=== PATIENT | female | born 1960 | race Caucasian/White ===

== ENCOUNTER → 2020-02-09 09:57 | Outpatient (BNVA) | payer OTHER, SELFPAY | PROVIDERS: PCP Internal Medicine; Referring Provider Internal Medicine; Visit Provider Nurse Practitioner | DX: Z76.89 Persons encountering health services in other specified circumstances (principal) ==

== ENCOUNTER 2020-05-01 07:47 | Outpatient (REF) | payer OTHER, SELFPAY ==
[2020-05-01 08:27] LABS: MANUAL DIFF FLAG NO
[2020-05-01 08:31] LABS: Basophils Percent Auto 0.5 % (0-2); Eosinophils Absolute Auto 0.4 X10*3/uL (0.0-0.4); Eosinophils Percent Auto 4.8 % (0-4); Hematocrit 43.9 % (37-47); Hemoglobin 13.7 g/dl (12.0-16.0); Imm Gran Abs Auto 0.02 X10*3/uL (0.00-0.03); Imm Gran Pct Auto 0.2 % (0.0-0.4); Lymphocytes Absolute Auto 2.1 X10*3/uL (1.2-4.9); Lymphocytes Percent Auto 23.2 % (20-40); Mean Corpuscular HGB Conc 31.2 g/dl (31.0-35.0); Mean Corpuscular Hemoglobin 30.8 pg (27.0-33.0); Mean Corpuscular Volume 98.7 fL (80-98); Mean Platelet Volume 10.5 fL (9.4-12.3); Monocytes Absolute Auto 0.8 X10*3/uL (0.1-1.2); Monocytes Percent Auto 9.2 % (2-11); Neutrophils Absolute Auto 5.5 X10*3/uL (2.0-8.3); Neutrophils Percent Auto 62.1 % (45-73); Platelet Count 346 X10*3/uL (160-400); Red Blood Count 4.45 X10*6/uL (4.20-5.50); White Blood Count 8.8 X10*3/uL (4.8-10.8)
[2020-05-01 08:57] LABS: Alanine Aminotransferase 13 U/L (0-31); Albumin Level 4.2 g/dL (3.5-5.0); Alkaline Phosphatase 92 U/L (39-117); Anion Gap 13 (12-20); Aspartate Amino Transferase 18 U/L (5-31); Bilirubin Total 0.6 mg/dL (0.0-1.0); Blood Urea Nitrogen 11 mg/dL (9-16); Calcium 9.2 mg/dL (8.4-10.2); Carbon Dioxide 30 mmol/L (22-29); Chloride 104 mmol/L (96-108); Cholesterol 255 mg/dL; Estimated Glomerular Filt Rate > 60; Glucose Random 86 mg/dL (60-115); HDL Cholesterol 71 mg/dL; LDL Cholesterol Calculated 165 mg/dl; Potassium 4.8 mmol/l (3.3-5.1); Sodium 142 mmol/L (135-145); Total Protein 6.8 g/dL (6.5-8.0); Triglycerides 97 mg/dL
[2020-05-01 09:20] LABS: Free T4 (Free Thyroxine) 1.07 ng/dL (0.71-1.85); Thyroid Stimulating Hormone 0.95 uIU/mL (0.32-4.0); Vitamin D 25-OH Total 17.9 ng/mL (>30)
[2020-05-03 05:50] LABS: Folate 9.5 ng/mL (> or = 4.0); Vitamin B12 291 pg/mL (200-900)
== END 2020-05-01 07:48 | disposition home or self-care (01) ==
LOC: HO.LAB 07:47
PROVIDERS: PCP Internal Medicine; Visit Provider Internal Medicine
DX: E78.00 Pure hypercholesterolemia, unspecified (principal)
CPT/HCPCS: 36415; 80053; 80061; 82306; 82607; 82746; 84439; 84443; 85025

== ENCOUNTER 2020-09-29 12:36 | Outpatient (REF) | payer OTHER, SELFPAY ==
--- NOTE | ~2020-09-29 | MM_ITS ---
EXAMINATION: MM SCREENING DIGITAL BREAST TOMOSYNTHESIS, BILATERAL CLINICAL INFORMATION: Screening. Asymptomatic. The lifetime risk of breast cancer based on the Tyrer-Cuzick Model is 9%. COMPARISON: Mammography: 11/06/2018, 09/22/2017, 03/20/2016, 03/04/2016 TECHNIQUE: Digital breast tomosynthesis is performed in both the craniocaudal and mediolateral oblique views along with computer-aided detection (CAD). Synthesized 2D images are generated from the tomosynthesis. FINDINGS: There are scattered areas of fibroglandular density (ACR BI-RADS breast composition Category b). There are no significant masses, abnormal calcifications, or other abnormalities. Parenchymal pattern is similar to prior studies. No developing density. No significant changes. MM/MM tomosynthesis screening BI IMPRESSION: No mammographic evidence of malignancy. ASSESSMENT: BI-RADS 1: Negative RECOMMENDATION: Routine annual mammography screening. This patient's information was entered into a reminder system with a target due date for their next mammogram.
== END 2020-09-29 12:37 | disposition home or self-care (01) ==
LOC: HO.MAMMO 12:36
PROVIDERS: Visit Provider Internal Medicine
DX: Z12.31 Encounter for screening mammogram for malignant neoplasm of breast (principal)
CPT/HCPCS: 77063; 77067

== ENCOUNTER → 2020-09-30 13:49 | Outpatient (BNVA) | payer OTHER, SELFPAY | PROVIDERS: PCP Internal Medicine; Visit Provider Nurse Practitioner ==

== ENCOUNTER 2020-10-16 08:31 | Outpatient (REF) | payer OTHER, SELFPAY ==
[2020-10-16 09:29] LABS: Alanine Aminotransferase 15 U/L (0-31); Albumin Level 4.2 g/dL (3.5-5.0); Alkaline Phosphatase 87 U/L (39-117); Anion Gap 13 (12-20); Aspartate Amino Transferase 17 U/L (5-31); Bilirubin Total 0.8 mg/dL (0.0-1.0); Blood Urea Nitrogen 9 mg/dL (9-16); Calcium 9.4 mg/dL (8.4-10.2); Carbon Dioxide 26 mmol/L (22-29); Chloride 106 mmol/L (96-108); Cholesterol 222 mg/dL; Estimated Glomerular Filt Rate > 60; Glucose Random 87 mg/dL (60-115); HDL Cholesterol 77 mg/dL; LDL Cholesterol Calculated 129 mg/dl; Potassium 4.1 mmol/L (3.3-5.1); Sodium 141 mmol/L (135-145); Triglycerides 82 mg/dL
[2020-10-16 09:34] LABS: Vitamin D 25-OH Total 25.7 ng/mL (>30)
[2020-10-18 04:51] LABS: Folate 18.7 ng/mL (> or = 4.0); Vitamin B12 405 pg/mL (200-900)
== END 2020-10-16 08:32 | disposition home or self-care (01) ==
LOC: HO.LAB 08:31
PROVIDERS: PCP Internal Medicine; Visit Provider Internal Medicine
DX: E78.00 Pure hypercholesterolemia, unspecified (principal)
CPT/HCPCS: 36415; 80053; 80061; 82306; 82607; 82746

== ENCOUNTER 2021-04-06 13:01 | Outpatient (REF) | payer OTHER, SELFPAY ==
--- NOTE | ~2021-04-06 | MM_ITS ---
EXAMINATION: BONE DENSITOMETRY CLINICAL INDICATION: Age-related osteoporosis without current pathological fracture. COMPARISON: Previous BD dated 11/14/2018 and baseline BD dated 05/22/2006, spine; 11/14/2018, forearm radius 33%. TECHNIQUE: Using a [employer] DXA System (software version: 13.1) manufactured by [employer], dual-energy x-ray absorptiometry was performed of the lumbar spine and left forearm radius 33%. Patient had bilateral hip replacements, precluding bone density measurement. The images are of good technical quality. Summary results are attached. FINDINGS: AP SPINE L1-L4: Current: BMD 0.901 g/cm2, Z-score -1.3, T-score -2.3, osteopenia, 2.9% increase from previous, 18.3% decrease from baseline (<5% change is not significant). Prior: BMD 0.876 g/cm2. Baseline: BMD 1.103 g/cm2. LEFT FOREARM RADIUS 33%: BMD 0.600 g/cm2, Z-score -2.0, T-score -3.2, osteoporosis, 8.3% decrease from baseline (<5% change is not significant). Baseline: BMD 0.654 g/cm2. IDENTIFIED RISK FACTORS: Osteoporosis, height loss, menopause. HISTORY OF FRACTURE: None listed. MEDICATIONS: Multivitamins. MM/XR DEXA axial skeleton IMPRESSION: 1. DIAGNOSIS: Osteoporosis based on the lowest T-score value of -3.2 in the forearm radius 33% applying World Health Organization criteria. 2. 10-YEAR FRACTURE RISK PREDICTION, FRAX: Not performed in this patient without a femoral neck BMD measurement. 3. Treatment Recommendations: NOF guidelines recommend consideration for treatment in postmenopausal women and men age 50 and older presenting with the following: -A hip or vertebral (clinical or morphometric) fracture. -T-score less than or equal to -2.5 at the femoral neck or spine after appropriate evaluation to exclude secondary causes. -Low bone mass at the hip or spine and a 10-year fracture probability by FRAX of greater than or equal to 3% for hip fracture or greater than or equal to 20% for major osteoporotic fracture based on the [place] adapted WHO algorithm. 4. Other Recommendations: All treatment decisions require clinical judgment and consideration of individual patient factors, including patient preferences, comorbidities, previous drug use, risk factors not captured in the FRAX model (e.g. frailty, falls, vitamin D deficiency, increased bone turnover, interval significant decline in bone density) and possible under or overestimation of fracture risk by FRAX. Additional medical evaluation for secondary cause of low bone mineral density may be appropriate. FUTURE SCAN RECOMMENDATION: People with diagnosed cases of osteoporosis or at high risk for fracture should have regular bone mineral density tests. For patients eligible for Medicare, routine testing is allowed once every 2 years. The testing frequency can be increased to one year for patients who have rapidly progressing disease, those who are receiving or discontinuing medical therapy to restore bone mass, or have additional risk factors.
== END 2021-04-06 13:02 | disposition home or self-care (01) ==
LOC: HO.MAMMO 13:01
PROVIDERS: PCP Internal Medicine; Visit Provider Internal Medicine
DX: Z13.820 Encounter for screening for osteoporosis (principal); M81.0 Age-related osteoporosis without current pathological fracture; Z78.0 Asymptomatic menopausal state; Z79.899 Other long term (current) drug therapy
CPT/HCPCS: 77080

== ENCOUNTER → 2021-05-31 13:18 | Outpatient (BNVA) | payer OTHER, SELFPAY | PROVIDERS: PCP Internal Medicine | DX: N39.41 Urge incontinence (principal) | CPT/HCPCS: 51798 ==

== ENCOUNTER → 2021-07-01 15:45 | Outpatient (BNVA) | payer OTHER, SELFPAY | PROVIDERS: PCP Internal Medicine | DX: Z13.89 Encounter for screening for other disorder (principal) ==

== ENCOUNTER 2021-09-30 13:31 | Outpatient (REF) | payer OTHER, SELFPAY ==
--- NOTE | ~2021-09-30 | MM_ITS ---
EXAMINATION: MM SCREENING DIGITAL BREAST TOMOSYNTHESIS, BILATERAL CLINICAL INFORMATION: Screening. Asymptomatic. The lifetime risk of breast cancer based on the Tyrer-Cuzick Model is 10%. COMPARISON: Mammography: 09/29/2020, 11/06/2018, 09/22/2017 TECHNIQUE: Digital breast tomosynthesis is performed in both the craniocaudal and mediolateral oblique views along with computer-aided detection (CAD). Synthesized 2D images are generated from the tomosynthesis. FINDINGS: There are scattered areas of fibroglandular density (ACR BI-RADS breast composition Category b). There are no significant masses, abnormal calcifications, or other abnormalities. Parenchymal pattern is similar to prior studies. No developing density. No architectural abnormality. No significant changes. MM/MM tomosynthesis screening BI IMPRESSION: No mammographic evidence of malignancy. ASSESSMENT: BI-RADS 1: Negative RECOMMENDATION: Routine annual mammography screening. This patient's information was entered into a reminder system with a target due date for their next mammogram.
== END 2021-09-30 13:32 | disposition home or self-care (01) ==
LOC: HO.MAMMO 13:31
PROVIDERS: Visit Provider Internal Medicine
DX: Z12.31 Encounter for screening mammogram for malignant neoplasm of breast (principal)
CPT/HCPCS: 77063; 77067

== ENCOUNTER 2021-11-09 15:30 | Outpatient (REF) | payer OTHER, SELFPAY ==
[2021-11-09 17:20] LABS: Appearance Urine HAZY; Color Urine ORANGE; Glucose Urine UA 100 MG/DL (NEG); Leukocyte Esterase Urine 3+ (NEG); Nitrite Urine POS (NEG); Specific Gravity - Urine 1.015 (1.005-1.025); UACC Culture Trigger YES; Urine Blood 3+ (NEG); Urine Ketones NEG (NEG); Urine Protein 3+ MG/DL (NEG-TRACE)
[2021-11-09 17:31] LABS: Bacteria Urine 2+ /LPF; Squamous Epithelial Cell Urine 1+ /LPF; WBC Urine TNTC /HPF (0-4)
== END 2021-11-09 15:31 | disposition home or self-care (01) ==
LOC: HO.LAB 15:30
PROVIDERS: PCP Internal Medicine; Visit Provider Internal Medicine
DX: N39.41 Urge incontinence (principal)
CPT/HCPCS: 81001; 87086

== ENCOUNTER 2022-01-19 08:52 | Outpatient (REF) | payer OTHER, SELFPAY ==
--- NOTE | ~2022-01-19 | XR_ITS ---
EXAMINATION: XR FOOT, LEFT CLINICAL INFORMATION: Left foot pain. COMPARISON: 09/11/2017. TECHNIQUE: AP, lateral, and oblique views of the left foot. FINDINGS: There is no evidence of acute fracture or dislocation of the left foot. No destructive bony lesions identified. Degenerative spurring is seen about the naviculocuneiform joint. Plantar and Achilles calcaneal spurs present. XR/XR foot LT 2V IMPRESSION: No evidence of acute fracture or dislocation of the left foot. Calcaneal spurs. Stable appearance compared to 09/11/2017.
== END 2022-01-19 08:53 | disposition home or self-care (01) ==
LOC: HO.XRAY 08:52
PROVIDERS: PCP Internal Medicine; Visit Provider Internal Medicine
DX: M79.672 Pain in left foot (principal)
CPT/HCPCS: 73620

== ENCOUNTER → 2022-07-28 15:36 | Outpatient (BNVA) | payer OTHER, SELFPAY | PROVIDERS: PCP Internal Medicine; Visit Provider Nurse Practitioner | DX: Z13.89 Encounter for screening for other disorder (principal) ==

== ENCOUNTER 2022-10-26 12:41 | Outpatient (REF) | payer OTHER, SELFPAY ==
--- NOTE | ~2022-10-26 | MM_ITS ---
EXAMINATION: MM SCREENING DIGITAL BREAST TOMOSYNTHESIS, BILATERAL CLINICAL INFORMATION: Screening. Asymptomatic. The lifetime risk of breast cancer based on the Tyrer-Cuzick Model is 8%. COMPARISON: Mammography: This study is compared with prior exams dating back to 2019. TECHNIQUE: Digital breast tomosynthesis is performed in both the craniocaudal and mediolateral oblique views along with computer-aided detection (CAD). Synthesized 2D images are generated from the tomosynthesis. FINDINGS: There are scattered areas of fibroglandular density (ACR BI-RADS breast composition Category b). There are no significant masses, abnormal calcifications, or other abnormalities. MM/MM tomosynthesis screening BI IMPRESSION: No mammographic evidence of malignancy. ASSESSMENT: BI-RADS BI-RADS 1 - Negative RECOMMENDATION: Routine annual mammography screening. 1 year F/U This examination should not preclude the clinical evaluation of a suspicious palpable abnormality. This patient's information was entered into a reminder system with a target due date for their next mammogram.
== END 2022-10-26 12:42 | disposition home or self-care (01) ==
LOC: HO.MAMMO 12:41
PROVIDERS: PCP Internal Medicine; Visit Provider Internal Medicine
DX: Z12.31 Encounter for screening mammogram for malignant neoplasm of breast (principal)
CPT/HCPCS: 77063; 77067

== ENCOUNTER → 2022-10-26 13:15 | Outpatient (BNV) | payer OTHER, SELFPAY | PROVIDERS: PCP Internal Medicine; Visit Provider Radiology Diagnostic Radiology | DX: Z12.31 Encounter for screening mammogram for malignant neoplasm of breast (principal) | CPT/HCPCS: 77063; 77067 ==

== ENCOUNTER 2023-01-19 09:09 | Outpatient (REF) | payer OTHER, SELFPAY ==
[2023-01-23 21:18] LABS: HPV mRNA E6/E7 rflx Not Detected (Not Detected)
== END 2023-01-19 09:10 | disposition home or self-care (01) ==
LOC: HO.LNP 09:09
PROVIDERS: PCP Internal Medicine; Visit Provider Advanced Practice Midwife
DX: Z01.419 Encounter for gynecological examination (general) (routine) without abnormal findings (principal)
CPT/HCPCS: 87624; 88142

== ENCOUNTER 2023-01-19 09:09 | Outpatient (AMB) | payer OTHER, SELFPAY ==
--- NOTE | 2023-01-19 09:20 | A.OFFVIS_ITS ---
Intake Vital Signs 01/19/23 09:33 Height 5 ft 3 in Weight 155 lb BMI 27.5 BP 126/74 Intake Visit Reasons: New patient Annual Intake Note: The patient agreed to use of a medical services assistant during this encounter. Scribed for MANNY Miller by Ginette Saravia medical services assistant, on 01/19/2023 at 10:04 am EST. Merchandise Distributor Required: No Information Interpreted: non-clinical & clinical Workday Consultant: Workday Consultant Present ([employer] ANGULO) Accompanied by: Self / Same As Patient Allergies Penicillins [PENICILLINS] Allergy (Severe, Verified 01/19/23 09:40) SWELLING amoxicillin Allergy (Unknown, Verified 01/19/23 09:40) swelling penicillin V Allergy (Unknown, Verified 01/19/23 09:40) swelling Post menopausal: Yes HPI HPI Comments History of Present Illness Details She is a new patient postmenopausal woman presenting for annual exam. 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 Patient admits she tries to eat a healthy diet including Calcium and Vitamin D. She stays active with exercise. Currently not sexually active. Denies vaginal itching and irritation. Denies family hx of colon and ovarian cancer. Last pap smear 01/22/15. Last mammogram 10/26/22. UTD on colonoscopy. [facility] Medical History Obesity (BMI 30-39.9) Lumbar disc herniation Congenital pyloric stenosis Stress incontinence Osteoporosis Vitamin D deficiency Sciatica Anxiety and depression Peripheral vascular disease Alcohol abuse Allergic rhinitis GERD (gastroesophageal reflux disease) Hypercholesterolemia Surgical History History of total right hip arthroplasty History of left hip replacement History of bladder surgery History of tonsillectomy Hx of colonoscopy History of esophagogastroduodenoscopy (EGD) Family History Father HTN (hypertension) Diabetes Mother HTN (hypertension) CVD (cardiovascular disease) Paternal Grandfather Myocardial infarction Paternal Grandmother Myocardial infarction Breast cancer Maternal Grandfather Myocardial infarction Maternal Grandmother Myocardial infarction Social History Household Members: Family Housing: Condominium Alcohol intake: current Alcohol intake frequency: holidays/special occasions only Alcohol type: wine Patient Tobacco Use Status: Former Tobacco user Tobacco use type: Cigarette Years Smoked: 18 years old quit e-Cigarette/Vaping Use: Never Used Second Hand Smoke Exposure: No service: No Current occupational status: employed Cognitive needs: No Hearing needs: No Vision needs: No Female Reproductive History Menstrual Menopause type: natural Total pregnancies: 2 Full term: 2 Number of Living Children: 2 Date of last pap smear: 01/22/15 Date of Mammogram: 10/26/22 Date of last Bone Density Screenin04/06/21 Physical Exam Vital Signs: Last Vital Signs BP 126/74 01/19/23 09:33 BMI result Body Mass Index 27.5 Const General: cooperative, healthy appearing, no acute distress, well developed and alert Orientation/consciousness: patient oriented x3 HEENT Head: Yes normal to inspection Eyes General: appearance normal, both eyes and all related structures Neck Neck: Yes normal visual inspection Thyroid: Thyroid normal Chest Chest palpation & inspection: normal inspection of the chest Breast/axilla inspection: normal inspection of the breasts (no puckering, dimpling, peau de orange, retraction, discharge, masses) Breast/axilla palpation: normal palpation of the breasts Resp Effort & Inspection: normal respiratory effort GI Inspection: Yes normal to inspection Palpation (GI): Soft to palpation (to palpation) Rectal Exam - Female: deferred General: Yes bladder normal to inspection External Female Exam: normal external appearance and normal appearance of the urethra Speculum Exam - Vagina: normal appearance of the vagina, normal palpation and vagina atrophic Speculum Exam - Cervix: normal appearance of the cervix and normal palpation Bimanual exam- vagina & uterus: normal palpation and normal palpation Bimanual Exam- Adnexa, other: normal adnexae and no masses Skin General skin exam: no rashes or lesions noted Neuro General: patient oriented x3 Cognition (Neuro): normal cognition Extrem General: Yes normal to inspection Psych Attitude: cooperative Thought process: Normal thought process present Assessment & Plan Assessment & Plan (1) Encounter for well woman exam with routine gynecological exam: Code(s): Z01.419 - Encounter for gynecological examination (general) (routine) without abnormal findings Plan: Discussed: Current recommendations for pap smears per ASCCP guidelines. Breast awareness and periodic self breast exams. Encouraged yearly mammograms. Maintaining a healthy lifestyle including a well balanced diet including Calcium and Vitamin D and routine exercise including yoga. Encouraged to use condoms for STD prevention if become sexually active. Contact office with any PMB. All of her questions and concerns were addressed to the best of my ability. RTO in 1 year for AG. Orders: Orders Pap Smear Today Z01.419 - Encounter for gynecological examination (general) (routine) without abnormal findings Coding Level of Care Code New Pt Prev Care 40-64y(56640) Diagnoses Encounter for well woman exam with routine gynecological exam Z01.419
[2023-01-19 09:33] VITALS: BP 126/74; BMI 27.5
== END 2023-01-19 10:26 | disposition home or self-care (01) ==
PROVIDERS: PCP Internal Medicine; Visit Provider Advanced Practice Midwife
DX: Z01.419 Encounter for gynecological examination (general) (routine) without abnormal findings (principal)
CPT/HCPCS: 99386

== ENCOUNTER → 2023-03-20 14:33 | Outpatient (BNVA) | payer SELFPAY | PROVIDERS: PCP Internal Medicine; Visit Provider Physician Assistant Medical | DX: S82.001A Unspecified fracture of right patella, initial encounter for closed fracture (principal); S82.002A Unspecified fracture of left patella, initial encounter for closed fracture; W01.0XXA Fall on same level from slipping, tripping and stumbling without subsequent striking against object, initial encounter | CPT/HCPCS: 99203 ==

== ENCOUNTER → 2023-03-26 13:18 | Outpatient (BNVA) | payer OTHER, SELFPAY | PROVIDERS: PCP Internal Medicine; Visit Provider Physician Assistant Medical | DX: S82.002A Unspecified fracture of left patella, initial encounter for closed fracture (principal); W01.0XXA Fall on same level from slipping, tripping and stumbling without subsequent striking against object, initial encounter | CPT/HCPCS: 99214 ==

== ENCOUNTER 2023-04-20 16:19 | Outpatient (AMB) | payer OTHER, SELFPAY ==
--- NOTE | 2023-04-20 15:59 | MHC.PC.OV ---
Vital Signs 04/20/23 16:00 Height 5 ft 3 in Intake Visit Reasons: COVID Positive Allergies Penicillins [PENICILLINS] Allergy (Severe, Verified 04/20/23 16:00) SWELLING amoxicillin Allergy (Unknown, Verified 04/20/23 16:00) swelling penicillin V Allergy (Unknown, Verified 04/20/23 16:00) swelling Medication List - Last Reconciled 04/20/23 by Karley Yates MD albuterol sulfate 90 mcg/actuation 2 puffs inhalation Q4-6H PRN 30 days budesonide ER 3 mg PO DAILY 30 days famotidine 40 mg PO BID ipratropium bromide 1 intranasal BEDTIME loratadine (Claritin) 10 mg PO DAILY nirmatrelvir-ritonavir 300 mg (150 mg x 2)-100 mg (Paxlovid) take TWO 150 mg tablets of nirmatrelvir with ONE 100 mg tablet of ritonavir twice daily for 5 days PO simvastatin 20 mg PO BEDTIME Tobacco use date assessed: 04/20/23 Fall risk assessment: 1 Fall in past year Last assessed Fall Risk: 04/20/23 Dental Screening Dental Screen Date: 04/20/23 Did you have a dental visit in the last 12 months?: Yes Did you have a dental problem in the last 6 months where you did not have access to dental care?: No Was dental information given to patient?: Patient has dentist HPI COVID Positive HPI Details 44-year-old female with a history of GERD hypercholesterolemia osteoporosis coming in for an acute problem through Telehealth. Last seen in January 2022 Patient just got diagnosed with COVID-19 1 day congestion sinus pressure- sneezing no sore throat. Discussed about the antiviral that it is a prescription sent in and that if she decides to take it to stop simvastatin. [facility] Medical History Obesity (BMI 30-39.9) Lumbar disc herniation Congenital pyloric stenosis Stress incontinence Osteoporosis Vitamin D deficiency Sciatica Anxiety and depression Peripheral vascular disease Alcohol abuse Allergic rhinitis GERD (gastroesophageal reflux disease) Hypercholesterolemia Surgical History History of total right hip arthroplasty History of left hip replacement History of bladder surgery History of tonsillectomy Hx of colonoscopy History of esophagogastroduodenoscopy (EGD) Family History Father HTN (hypertension) Diabetes Mother HTN (hypertension) CVD (cardiovascular disease) Paternal Grandfather Myocardial infarction Paternal Grandmother Myocardial infarction Breast cancer Maternal Grandfather Myocardial infarction Maternal Grandmother Myocardial infarction Social History [facility]hold Members: [facility] Alcohol intake: current Alcohol intake frequency: holidays/special occasions only Alcohol type: wine Patient Tobacco Use Status: Former Tobacco user Tobacco use type: Cigarette Years Smoked: 18 years old quit e-Cigarette/Vaping Use: Never Used Second Hand Smoke Exposure: No service: No Current occupational status: employed Cognitive needs: No Hearing needs: No Vision needs: No Questionnaire PHQ-9 Over the last 2 weeks, how often have you been bothered by any of the following problems? 1. Little interest or pleasure in doing things: not at all 2. Feeling down, depressed, or hopeless: not at all 3. Trouble falling or staying asleep, or sleeping too much: not at all 4. Feeling tired or having little energy: not at all 5. Poor appetite or overeating: not at all 6. Feeling bad about yourself - or that you are a failure or have let yourself or your family down: not at all 7. Trouble concentrating on things, such as reading the newspaper or watching television: not at all 8. Moving or speaking so slowly that other people could have noticed. Or the opposite - being so fidgety or restless that you have been moving around a lot more than usual: not at all 9. Thoughts that you would be better off or of hurting yourself in some way: not at all Total score: 0 Depression Screening Interpretation: Negative Depression Screening Done: Yes Source: Developed by Drs. Rao Rizo, Lashawn Peerz, Quinn Aquino and colleagues, with an educational bernarda from [employer]. Thrive Questionnaire Date Thrive assessed: 04/20/23 I am a: Patient What is your living situation today?: I have a steady place to live Within the past 12 months, did the food you bought not last and you didn't have the money to get more?: Never true Within the past 12 months, did you worry whether your food would run out before you got money to buy more?: Never true Do you have trouble paying for medicines?: No Do you have trouble getting transportation to medical appointments?: No Do you have trouble paying your heating and electricity bill?: No Do you have trouble taking care of your child, family member or friend?: No Do you have trouble with day-to-day activities such as bathing, preparing meals, shopping, managing finances, etc.?: No Are you currently unemployed and looking for a job?: No Are you interested in more education?: No Please select the resources that you would like help with: None AUDIT C Alcohol Use Questionnaire (AUDIT-C) 1. How often do you have a drink containing alcohol?: 2-4 times a month 2. How many drinks containing alcohol do you have on a typical day when you are drinking?: 1 or 2 3. How often do you have six or more drinks on one occasion?: Never Total Score: 2 AUGIE-7 AMB Questionnaire AUGIE-7 Date AUGIE - 7 assessed: 04/20/23 Feeling nervous, anxious, or on edge: 0 = Not at all Not being able to stop or control worryin = Not at all Worrying too much about different things: 0 = Not at all Trouble relaxin = Not at all Being so restless that it is hard to sit still: 0 = Not at all Becoming easily annoyed or irritable: 0 = Not at all Feeling afraid as if something awful might happen: 0 = Not at all Total AUGIE-7 score (0-4 normal; 5-9 mild; 10-14 moderate; 15-21 severe): 0 Source: Developed by Drs. Rao Rizo, Lashawn Perez, Quinn Aquino and colleagues, with an educational bernarda from [employer]. Physical exam (Primary Care) Tobacco/Smoking Status: Tobacco use Status Tobacco use date assessed 04/20/23 04/20/23 16:02 Patient Tobacco Use Status Former Tobacco user 04/20/23 16:00 Tobacco use type Cigarette 04/20/23 16:00 e-Cigarette/Vaping Use Never Used 04/20/23 16:00 PHQ-9: PHQ-9 Score PHQ-9: Total score 0 04/20/23 16:26 Depression Screening Interpretation: Negative Thrive Assessment: Date of Thrive Assessment Date Thrive assessed 04/20/23 04/20/23 16:02 Telehealth Telehealth Location of provider rendering services: practice address Location of patient: address on file Patient Identification confirmed using: Name, : Yes Telehealth method: voice only Patient verbally consented to treatment: Yes Patient verbally consented to billing insurance company: Yes Patient informed of any privacy concerns related to visit: Yes Minutes spent on Phone/Video with Pt.: 15 Assessment and Plan Assessment & Plan (1) COVID-19 virus infection: Comment: 04/20/2023 Code(s): U07.1 - COVID-19 Plan: Discussion with the patient to increase oral fluids. For sore throat can take Cepacol lozenges and for cough can take Delsym to help stop the cough. Patient also was advised if to take antiviral to hold simvastatin. Quarantine for 5 days and after 5 days can go outside if needed but has to use the mask for another 5 days Medications: New nirmatrelvir-ritonavir 300 mg (150 mg x 2)-100 mg (Paxlovid) take TWO 150 mg tablets of nirmatrelvir with ONE 100 mg tablet of ritonavir twice daily for 5 days PO 30 ea 0RF Coding Level of Care Code Tele Est Pt Level 3 (97810) Diagnoses COVID-19 virus infection U07.1
== END 2023-04-20 17:27 | disposition home or self-care (01) ==
LOC: HO.HMGH 16:19
PROVIDERS: PCP Internal Medicine; Visit Provider Internal Medicine
DX: U07.1 COVID-19 (principal)
CPT/HCPCS: 99213

== ENCOUNTER 2023-07-27 10:00 | Outpatient (AMB) | payer OTHER, SELFPAY ==
--- NOTE | 2023-07-27 10:02 | A.OFFVIS_ITS ---
Vital Signs 07/27/23 10:13 Height 5 ft 3 in Weight 152 lb BMI 26.9 BP 126/59 L Blood Pressure Location Lt brachial Position Sitting Pulse 75 Intake Visit Reasons: 1 yr follow up lymphocytic colitis, GERD Intake Note: Patient is seen in office for one year follow up visit, following lymphocytic colitis & GERD. Pt c/o: denies any GI issues, normal stools Nib Finisher Required: No Accompanied by: Self / Same As Patient Allergies Penicillins [PENICILLINS] Allergy (Severe, Verified 07/27/23 10:11) SWELLING amoxicillin Allergy (Unknown, Verified 07/27/23 10:11) swelling penicillin V Allergy (Unknown, Verified 07/27/23 10:11) swelling HPI HPI 1 yr follow up lymphocytic colitis, GERD: Details: Assessment & Plan (1) GERD (gastroesophageal reflux disease): Code(s): K21.9 - Gastro-esophageal reflux disease without esophagitis Plan: The 61-year-old female who appears to been lost follow-up since December of 2021. She has been doing very well! She has been unusually healthy over the past year or so. She partly attributes this to moving out of her old house that had mold, and taking her claritin every day. She finds that not having any post nasal drip is helping her not to set off her GERD. She continues on her budesinide for he lymphocytic colitis with good control. She also continues on her famotidine with good control. She will be moving to [place] in a couple of years. (2) Lymphocytic colitis: Code(s): K52.832 - Lymphocytic colitis (3) Diaphragmatic hernia without obstruction: Comment: quite large with food pouching and may need [employer] Treatment Code(s): K44.9 - Diaphragmatic hernia without obstruction or gangrene (4) Erosive esophagitis: Code(s): K22.10 - Ulcer of esophagus without bleeding Medications: Refilled budesonide ER 3 mg PO DAILY 30 days 30 caps 6RF K52.832 - Lymphocytic colitis famotidine 40 mg PO BID 180 tabs 2RF J30.9 - Allergic rhinitis, unspecified, K21.9 - Gastro-esophageal reflux disease without esophagitis budesonide ER 3 mg PO DAILY 30 days 30 caps 11RF K52.832 - Lymphocytic colitis TODAY'S VISIT She is doing much better since she moved out of her old house, she may have a lot of environmental allergies that c/t her severe GERD and diarrhea. She has not needed her famotidine, but had it refilled for prn use. She continues on her budesinide and she wants to experiment weaning off of the budesinide and we discuss a weaning schedule. She is now living with her mother. She has found that red wine is a trigger for her sx so she avoids this. She is in the process of moving to [place]! She has a lot to think about. This will be happening in about a year and andrea. MARLY 1 year. [facility] Medical History Obesity (BMI 30-39.9) Lumbar disc herniation Congenital pyloric stenosis Stress incontinence Osteoporosis Vitamin D deficiency Sciatica Anxiety and depression Peripheral vascular disease Alcohol abuse Allergic rhinitis GERD (gastroesophageal reflux disease) Hypercholesterolemia Surgical History History of total right hip arthroplasty History of left hip replacement History of bladder surgery History of tonsillectomy Hx of colonoscopy History of esophagogastroduodenoscopy (EGD) Family History Father HTN (hypertension) Diabetes Mother HTN (hypertension) CVD (cardiovascular disease) Paternal Grandfather Myocardial infarction Paternal Grandmother Myocardial infarction Breast cancer Maternal Grandfather Myocardial infarction Maternal Grandmother Myocardial infarction Social History Household Members: [facility] Alcohol intake: current Alcohol intake frequency: holidays/special occasions only Alcohol type: wine Patient Tobacco Use Status: Former Tobacco user Tobacco use type: Cigarette Years Smoked: 18 years old quit e-Cigarette/Vaping Use: Never Used Second Hand Smoke Exposure: No service: No Current occupational status: employed Cognitive needs: No Hearing needs: No Vision needs: No Review of Systems Const All systems reviewed & are unremarkable except as noted in HPI and below Denies fatigue, Denies fever(s), Denies night sweats, Denies poor appetite and Reports weight loss (stopped drinking soda) Eyes Details: glasses Reports requires corrective lenses ENT Reports Normal hearing present, Denies dental pain, Denies dysphagia, Denies hearing loss, Denies mouth pain, Denies odynophagia, Denies throat swelling, Denies tongue swelling and Reports other (Dentition adequate) Card Reports no additional complaints Resp Reports no additional complaints GI Details: Denies abdominal pain, Denies melena, Denies bloating, Denies hematochezia, Denies constipation, Denies GI cramping, Denies dysphagia, Denies excessive flatus, Denies early satiety, Reports heartburn, Reports diarrhea, Denies nausea, Denies odynophagia, Denies vomiting and Denies hematemesis Musc Details: going to PT now for this also fx her knee recetnly Reports arthralgias, Reports muscle cramps and Reports muscle weakness Skin/Breast Denies pruritus, Denies lesions, Denies rash and Denies jaundice Neuro Reports Normal hearing present and Denies Abnormal speech present Endo Denies fatigue Aller/Immun Denies throat swelling and Denies tongue swelling Physical Exam Vital Signs: Last Vital Signs Pulse 75 07/27/23 10:13 BP 126/59 L 07/27/23 10:13 BMI result Body Mass Index 26.9 Const General: cooperative, no acute distress, well developed and well groomed Nutritional Appearance: average body habitus and well nourished Orientation/consciousness: oriented to person, oriented to place and oriented to time Limitations: No language barrier HEENT Head: Yes normocephalic and Yes atraumatic Eyes General: appearance normal, both eyes and all related structures Pupils: Equal, round and reactive pupils present Neck Neck: Yes normal visual inspection and Yes no lymphadenopathy Thyroid: Thyroid normal Resp Effort & Inspection: normal respiratory effort and able to speak in complete sentences Auscultation: clear to auscultation bilaterally Cardio Rate: regular rate Rhythm: regular rhythm Heart sounds: Normal, physiologic split S2 sound present Peripheral pulses: radial pulses present and posterior tibial pulses present GI Inspection: No distended and No Abdominal panniculus present Palpation (GI): Soft to palpation, nontender, no guarding, not rigid and No hepatosplenomegaly present Percussion: Yes normal to percussion Auscultation: normal bowel sounds Rectal Exam - Female: deferred Skin General skin exam: no rashes or lesions noted, turgor normal, skin not dry, no jaundice, No spider nevi and no striae Rashes: no rashes Nails: normal Neuro General: oriented to person, oriented to place and oriented to time Cranial nerves: Yes Equal, round and reactive pupils present and Yes Normal hear ing present Speech: No Abnormal speech present Extrem General: Yes normal to inspection, No clubbing, No cyanosis and No edema Psych Appearance: grossly normal and well kempt Mental Status: mental status grossly normal Speech and movement: Normal speech and movement present Affect: normal affect Attitude: cooperative Thought process: Normal thought process present and not confabulating Thought content: Normal thought content present Insight: Fair insight present (Psych) Judgement: Fair judgement present (Psych) Assessment & Plan Assessment & Plan (1) GERD (gastroesophageal reflux disease): Code(s): K21.9 - Gastro-esophageal reflux disease without esophagitis Category: Medical (2) Lymphocytic colitis: Code(s): K52.832 - Lymphocytic colitis Category: Medical Plan She is doing much better since she moved out of her old house, she may have a lot of environmental allergies that c/t her severe GERD and diarrhea. She has not needed her famotidine, but had it refilled for prn use. She continues on her budesinide and she wants to experiment weaning off of the budesinide and we discuss a weaning schedule. She is now living with her mother. She has found that red wine is a trigger for her sx so she avoids this. She is in the process of moving to [place]! She has a lot to think about. This will be happening in about a year and aLiang LUKE 1 year. Medications: Refilled budesonide DR-ER 3 mg PO DAILY 30 caps 11RF 30 days K52.832 - Lymphocytic colitis
[2023-07-27 10:13] VITALS: BP 126/59; PULSE 75; BMI 26.9
== END 2023-07-27 10:32 | disposition home or self-care (01) ==
PROVIDERS: Visit Provider Nurse Practitioner
DX: K21.9 Gastro-esophageal reflux disease without esophagitis (principal); K52.832 Lymphocytic colitis
CPT/HCPCS: 99213

== ENCOUNTER → 2023-07-27 10:00 | Outpatient (BNVA) | payer OTHER, SELFPAY | PROVIDERS: Visit Provider Nurse Practitioner ==

== ENCOUNTER 2023-08-21 08:33 | Outpatient (AMB) | payer OTHER, SELFPAY ==
--- NOTE | 2023-08-21 08:50 | MHC.PC.OV ---
Vital Signs 08/21/23 08:51 Height 5 ft 3 in Weight 153 lb 0.4 oz BMI 27.1 BP 110/72 Blood Pressure Location Lt brachial Position Sitting Pulse 70 Pulse Source Pulse Oximeter Pulse Oximetry (%) 99 Oxygen Delivery Method Room Air Intake Visit Reasons: Yearly physical Intake Note: Patient is here today for a physical. Allergies Penicillins [PENICILLINS] Allergy (Severe, Verified 07/27/23 10:11) SWELLING amoxicillin Allergy (Unknown, Verified 07/27/23 10:11) swelling penicillin V Allergy (Unknown, Verified 07/27/23 10:11) swelling Medication List - Last Reconciled 08/21/23 by Karley Yates MD albuterol sulfate 90 mcg/actuation 2 puffs inhalation Q4-6H PRN 30 days ipratropium bromide 1 intranasal BEDTIME loratadine (Claritin) 10 mg PO DAILY simvastatin 20 mg PO BEDTIME Tobacco use date assessed: 08/21/23 Fall risk assessment: No Falls in past year Last assessed Fall Risk: 08/21/23 Dental Screening Dental Screen Date: 08/21/23 Did you have a dental visit in the last 12 months?: Yes Did you have a dental problem in the last 6 months where you did not have access to dental care?: No Was dental information given to patient?: Patient has dentist HPI Yearly physical HPI Details 62-year-old overweight female with a history of hypercholesterolemia erosive esophagitis with GERD osteoporosis coming in for physical exam last seen had COVID in 19 infection in April 2023. Patient's mammogram is up-to-date colonoscopy is March 2017 bone density March 2021. Patient follows up with Gastroenterology for the lymphocytic colitis seen July 2023 continues to be on budesonide for the lymphocytic colitis patient has diaphragmatic hernia with erosive esophagitis on famotidine she is in the process of moving to [place] advised weaning of budesonide. 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 [facility] Medical History (Updated 08/21/23 @ 09:09 by Karley Yates MD) Obesity (BMI 30-39.9) Lumbar disc herniation Congenital pyloric stenosis Stress incontinence Osteoporosis Vitamin D deficiency Sciatica Anxiety and depression Peripheral vascular disease Alcohol abuse Allergic rhinitis GERD (gastroesophageal reflux disease) Hypercholesterolemia Surgical History History of total right hip arthroplasty History of left hip replacement History of bladder surgery History of tonsillectomy Hx of colonoscopy History of esophagogastroduodenoscopy (EGD) Family History Father HTN (hypertension) Diabetes Mother HTN (hypertension) CVD (cardiovascular disease) Paternal Grandfather Myocardial infarction Paternal Grandmother Myocardial infarction Breast cancer Maternal Grandfather Myocardial infarction Maternal Grandmother Myocardial infarction Social History (Updated 08/21/23 @ 09:15 by Karley Yates MD) Household Members: Family Housing: [facility] Alcohol intake: current Alcohol intake frequency: holidays/special occasions only Alcohol type: wine Comment: glass of wine 2-3 x a week Patient Tobacco Use Status: Former Tobacco user Tobacco use type: Cigarette Years Smoked: 18 years old quit e-Cigarette/Vaping Use: Never Used Second Hand Smoke Exposure: No service: No Current occupational status: employed Cognitive needs: No Hearing needs: No Vision needs: No Questionnaire PHQ-9 Over the last 2 weeks, how often have you been bothered by any of the following problems? 1. Little interest or pleasure in doing things: not at all 2. Feeling down, depressed, or hopeless: not at all 3. Trouble falling or staying asleep, or sleeping too much: not at all 4. Feeling tired or having little energy: not at all 5. Poor appetite or overeating: not at all 6. Feeling bad about yourself - or that you are a failure or have let yourself or your family down: not at all 7. Trouble concentrating on things, such as reading the newspaper or watching television: not at all 8. Moving or speaking so slowly that other people could have noticed. Or the opposite - being so fidgety or restless that you have been moving around a lot more than usual: not at all 9. Thoughts that you would be better off or of hurting yourself in some way: not at all Total score: 0 Depression Screening Interpretation: Negative Depression Screening Done: Yes Source: Developed by Drs. Rao Rizo, Lashawn Perez, Quinn Aquino and colleagues, with an educational bernarda from [employer]. Thrive Questionnaire Date Thrive assessed: 08/21/23 I am a: Patient What is your living situation today?: I have a steady place to live Within the past 12 months, did the food you bought not last and you didn't have the money to get more?: Never true Within the past 12 months, did you worry whether your food would run out before you got money to buy more?: Never true Do you have trouble paying for medicines?: No Do you have trouble getting transportation to medical appointments?: No Do you have trouble paying your heating and electricity bill?: No Do you have trouble taking care of your child, family member or friend?: No Do you have trouble with day-to-day activities such as bathing, preparing meals, shopping, managing finances, etc.?: No Are you currently unemployed and looking for a job?: No Are you interested in more education?: No Please select the resources that you would like help with: None THRIVE Score: 0 AUGIE-7 AMB Questionnaire AUGIE-7 Date AUGIE - 7 assessed: 08/21/23 Feeling nervous, anxious, or on edge: 0 = Not at all Not being able to stop or control worryin = Not at all Worrying too much about different things: 0 = Not at all Trouble relaxin = Not at all Being so restless that it is hard to sit still: 0 = Not at all Becoming easily annoyed or irritable: 0 = Not at all Feeling afraid as if something awful might happen: 0 = Not at all Total AUGIE-7 score (0-4 normal; 5-9 mild; 10-14 moderate; 15-21 severe): 0 Source: Developed by Drs. Rao Rizo, Lashawn Perez, Quinn Aquino and colleagues, with an educational bernarda from [employer]. Review of Systems Const Denies poor appetite and Denies weakness Eyes Denies no additional complaints ENT Reports Normal hearing present, Denies dizziness, Denies nasal congestion, Denies tinnitus and Denies sore throat Card Denies chest pain, Denies syncope, Denies rapid heart rate and Denies dyspnea Resp Denies cough and Denies dyspnea GI Denies change in stool character, Reports constipation, Denies diarrhea, Denies nausea and Denies vomiting Denies urinary frequency, Denies difficulty voiding and Denies dysuria Neuro Reports Normal hearing present, Denies confusion, Denies dizziness, Denies syncope and Denies weakness Psych Denies confusion Physical exam (Primary Care) Vital Signs: Last Vital Signs Pulse 70 08/21/23 08:51 BP 110/72 08/21/23 08:51 Pulse Ox 99 08/21/23 08:51 Oxygen Delivery Method Room Air 08/21/23 08:51 BMI result Body Mass Index 27.1 Tobacco/Smoking Status: Tobacco use Status Tobacco use date assessed 08/21/23 08/21/23 08:59 Patient Tobacco Use Status Former Tobacco user 08/21/23 09:15 Tobacco use type Cigarette 08/21/23 09:15 e-Cigarette/Vaping Use Never Used 08/21/23 09:15 PHQ-9: PHQ-9 Score PHQ-9: Total score 0 08/21/23 09:33 Depression Screening Interpretation: Negative Thrive Assessment: Date of Thrive Assessment Date Thrive assessed 08/21/23 08/21/23 08:59 Const General: No confusion Orientation/consciousness: No confusion HENMT Head: Yes normocephalic Ears: external ears normal and TM's normal bilaterally Face and sinus: Yes normal facial exam Mouth: moist mucous membranes Throat: Yes tonsils normal Eyes Conjunctivae: conjunctivae normal Pupils: Equal, round and reactive pupils present and Pupil accommodation reflex normal Direct Ophthalmoscopy: normal light reflex Neck Neck: No lymphadenopathy Thyroid: Thyroid normal Chest Chest palpation & inspection: normal inspection of the chest Resp Effort & Inspection: normal respiratory effort and no audible wheezes Auscultation: clear to auscultation bilaterally, no crackles, no wheezes and lung sounds not diminished Cardio Rate: regular rate Rhythm: regular rhythm Peripheral pulses: radial pulses present and dorsalis pedis present GI Other: decline , seeing Gyne Palpation (GI): no masses Auscultation: normal bowel sounds and normoactive bowel sounds Rectal Exam - Female: deferred Skin General skin exam: no rashes or lesions noted Rashes: no rashes Neuro General: No confusion Cranial nerves: Yes Equal, round and reactive pupils present and Yes Normal hearing present Cognition (Neuro): normal cognition Gait exam (Neuro): Normal gait present Motor exam (neuro): 5/5 motor strength present throughout Deep tendon reflexes (DTR's): Right brachioradialis reflex intensity grade: 2+, Left brachioradialis reflex intensity grade: 2+, Right patellar reflex intensity grade: 2+ and Left patellar reflex intensity grade: 2+ Extrem General: No edema Immunizations tetanus-diphtheria toxoids-Td 2 Lf unit-2 Lf unit/0.5 mL IM suspension Performing Provider: aKrley Yates MD [facility] Administered by: KEV Phan on 08/21/23 09:33 Dose Route Admin Location Dispensed Lot Number Expiration Date [employer] 0.5 mL IM Left Deltoid 0.5 mL [id number] 05/19/24 [address]-3 [employer] VIS Given Date VIS Provided VIS Publication Date 08/21/23 Single Vaccine 20 Eligibility Eligibility Date Funding Source Not [facility] Eligible 08/21/23 [facility] funds Assessment and Plan Assessment & Plan (1) Annual physical exam: Code(s): Z00.00 - Encounter for general adult medical examination without abnormal findings (2) Overweight (BMI 25.0-29.9): Code(s): E66.3 - Overweight Plan: Continue with diet and exercise (3) GERD (gastroesophageal reflux disease): Code(s): K21.9 - Gastro-esophageal reflux disease without esophagitis Plan: Avoid the foods that causes that usually spicy foods, tomato products, juices, coffee, soda and foods that your sensitive to. After eating do not lie down, allow 3-4 hours before in lie down. And keep the head of bed above 30 degrees to avoid the acid from going up. (4) Lymphocytic colitis: Code(s): K52.832 - Lymphocytic colitis Plan: Patient has been weaned off budesonide (5) Hypercholesterolemia: Code(s): E78.00 - Pure hypercholesterolemia, unspecified Plan: Avoid fried foods, chicken skin, eggs, butter margarine, pastries and meat. Be it pork or beef they have a lot of cholesterol reminded about blood work LDL goal of less than 130 and triglyceride of less than 150 (6) Osteoporosis: Comment: March 2021 Code(s): M81.0 - Age-related osteoporosis without current pathological fracture Plan: Reminded about bone density Orders: Orders Comprehensive Met. Panel Today E78.00 - Pure hypercholesterolemia, unspecified Lipid Panel Today E78.00 - Pure hypercholesterolemia, unspecified Vitamin B12 and Folate Today E78.00 - Pure hypercholesterolemia, unspecified Vitamin D 25-OH Total Today E78.00 - Pure hypercholesterolemia, unspecified Free T4 (Free Thyroxine) Today E78.00 - Pure hypercholesterolemia, unspecified Thyroid Stimulating Hormone Today E78.00 - Pure hypercholesterolemia, unspecified XR DEXA axial skeleton Today M81.0 - Age-related osteoporosis without current pathological fracture Td State Immunization Today Z23 - Encounter for immunization Complete Blood Count Auto Diff Today E78.00 - Pure hypercholesterolemia, unspecified Medications: New tetanus-diphtheria toxoids-Td 0.5 mL IM ONCE 0.5 mL 0RF Z23 - Encounter for immunization Coding Level of Care Code Est Pt Prev Care 40-64y([id number]) Diagnoses Annual physical exam Z00.00 Overweight (BMI 25.0-29.9) E66.3 GERD (gastroesophageal reflux disease) K21.9 Lymphocytic colitis K52.832 Hypercholesterolemia E78.00 Osteoporosis M81.0
[2023-08-21 08:51] VITALS: BP 110/72; PULSE 70; O2SAT 99; BMI 27.1
== END 2023-08-21 09:41 | disposition home or self-care (01) ==
PROVIDERS: PCP Internal Medicine; Visit Provider Internal Medicine
DX: Z23 Encounter for immunization (principal); Z00.00 Encounter for general adult medical examination without abnormal findings; K21.9 Gastro-esophageal reflux disease without esophagitis; K52.832 Lymphocytic colitis; M81.0 Age-related osteoporosis without current pathological fracture; E78.00 Pure hypercholesterolemia, unspecified
CPT/HCPCS: 90471; 90714; 99396

== ENCOUNTER 2023-08-31 07:04 | Outpatient (REF) | payer OTHER, SELFPAY ==
[2023-08-31 07:16] LABS: MANUAL DIFF FLAG NO
[2023-08-31 07:44] LABS: Basophils Absolute Auto 0.1 X10*3/uL (0.0-0.2); Basophils Percent Auto 0.8 % (0-2); Eosinophils Absolute Auto 0.5 X10*3/uL (0.0-0.4); Eosinophils Percent Auto 6.1 % (0-4); Hemoglobin 12.8 g/dl (12.0-16.0); Imm Gran Abs Auto 0.02 X10*3/uL (0.00-0.03); Imm Gran Pct Auto 0.3 % (0.0-0.4); Lymphocytes Absolute Auto 2.2 X10*3/uL (1.2-4.9); Lymphocytes Percent Auto 29.5 % (20-40); Mean Corpuscular Hemoglobin 31.7 pg (27.0-33.0); Mean Platelet Volume 10.6 fL (9.4-12.3); Monocytes Absolute Auto 0.8 X10*3/uL (0.1-1.2); Monocytes Percent Auto 10.3 % (2-11); Platelet Count 281 X10*3/uL (160-400); Red Blood Count 4.04 X10*6/uL (4.20-5.50); Red Cell Distribution Width 12.4 % (11.0-16.0); White Blood Count 7.5 X10*3/uL (4.8-10.8)
[2023-08-31 08:29] LABS: Alanine Aminotransferase 15 U/L (0-31); Albumin Level 3.8 g/dL (3.5-5.0); Alkaline Phosphatase 71 U/L (39-117); Anion Gap 10 (12-20); Aspartate Amino Transferase 21 U/L (5-31); Bilirubin Total 0.5 mg/dL (0.0-1.0); Blood Urea Nitrogen 9 mg/dL (9-16); Calcium 9.1 mg/dL (8.4-10.2); Carbon Dioxide 27 mmol/L (22-29); Chloride 109 mmol/L (96-108); Cholesterol 195 mg/dL (<200); Estimated Glomerular Filt Rate > 60; Glucose Random 86 mg/dL (60-115); HDL Cholesterol 66 mg/dL (>40); LDL Cholesterol Calculated 117 mg/dL (<100); Potassium 3.9 mmol/L (3.3-5.1); Sodium 142 mmol/L (135-145); Total Protein 6.4 g/dL (6.5-8.0); Triglycerides 64 mg/dL (<150)
[2023-08-31 08:31] LABS: Free T4 (Free Thyroxine) 0.99 ng/dL (0.71-1.85); Thyroid Stimulating Hormone 1.08 uIU/mL (0.32-4.0); Vitamin D 25-OH Total 29.8 ng/mL (>30)
[2023-08-31 08:42] LABS: Folate 12.7 ng/mL (> or = 4.0); Vitamin B12 478 pg/mL (200-900)
== END 2023-08-31 07:05 | disposition home or self-care (01) ==
LOC: HO.LAB 07:04
PROVIDERS: PCP Internal Medicine; Visit Provider Internal Medicine
DX: E78.00 Pure hypercholesterolemia, unspecified (principal)
CPT/HCPCS: 36415; 80053; 80061; 82306; 82607; 82746; 84439; 84443; 85025

== ENCOUNTER 2023-11-01 12:51 | Outpatient (REF) | payer BC, SELFPAY ==
--- NOTE | ~2023-11-01 | MM_ITS ---
EXAMINATION: BONE DENSITOMETRY CLINICAL INDICATION: Age-related osteoporosis without current pathological fracture. COMPARISON: This is the patient's baseline examination. TECHNIQUE: Using a [employer] DXA System (software version: 13.60) manufactured by [employer], dual-energy x-ray absorptiometry was performed of the lumbar spine and left forearm radius 33%. The images are of good technical quality. Summary results are attached. FINDINGS: AP SPINE L1-L4: BMD 0.845 g/cm2, Z-score -1.3, T-score -2.8, osteoporosis. LEFT FOREARM RADIUS 33%: BMD 0.522 g/cm2, Z-score -2.7, T-score -4.0, osteoporosis, 13.0% decrease from previous, 20.2% decrease from baseline (<5% change is not significant). Prior: BMD 0.600 g/cm2. Baseline: BMD 0.654 g/cm2. IDENTIFIED RISK FACTORS: Height loss, history of fracture (adult), menopause. HISTORY OF FRACTURE: Other. MEDICATIONS: Calcium, multivitamin, vitamin D. MM/XR DEXA appendicular skeleton IMPRESSION: 1. DIAGNOSIS: Osteoporosis based on the lowest T-score value of -4.0 in the forearm radius 33% applying World Health Organization criteria. 2. 10-YEAR FRACTURE RISK PREDICTION, FRAX: According to the guidelines, FRAX calculation should only be performed on patients in the osteopenia bone density category. Therefore, FRAX was not performed on this patient.? 3. Treatment Recommendations: NOF guidelines recommend consideration for treatment in postmenopausal women and men age 50 and older presenting with the following: -A hip or vertebral (clinical or morphometric) fracture. -T-score less than or equal to -2.5 at the femoral neck or spine after appropriate evaluation to exclude secondary causes. -Low bone mass at the hip or spine and a 10-year fracture probability by FRAX of greater than or equal to 3% for hip fracture or greater than or equal to 20% for major osteoporotic fracture based on the [place] adapted WHO algorithm. 4. Other Recommendations: All treatment decisions require clinical judgment and consideration of individual patient factors, including patient preferences, comorbidities, previous drug use, risk factors not captured in the FRAX model (e.g. frailty, falls, vitamin D deficiency, increased bone turnover, interval significant decline in bone density) and possible under or overestimation of fracture risk by FRAX. Additional medical evaluation for secondary cause of low bone mineral density may be appropriate. FUTURE SCAN RECOMMENDATION: People with diagnosed cases of osteoporosis or at high risk for fracture should have regular bone mineral density tests. For patients eligible for Medicare, routine testing is allowed once every 2 years. The testing frequency can be increased to one year for patients who have rapidly progressing disease, those who are receiving or discontinuing medical therapy to restore bone mass, or have additional risk factors.
== END 2023-11-01 12:52 | disposition home or self-care (01) ==
LOC: HO.MAMMO 12:51
PROVIDERS: PCP Internal Medicine; Visit Provider Internal Medicine
DX: M81.0 Age-related osteoporosis without current pathological fracture (principal); Z12.31 Encounter for screening mammogram for malignant neoplasm of breast
CPT/HCPCS: 77063; 77067; 77081

== ENCOUNTER → 2023-11-01 13:00 | Outpatient (BNV) | payer BC, SELFPAY | PROVIDERS: PCP Internal Medicine; Visit Provider Radiology Diagnostic Radiology | DX: Z12.31 Encounter for screening mammogram for malignant neoplasm of breast (principal) | CPT/HCPCS: 77063; 77067 ==

== ENCOUNTER 2024-01-23 13:42 | Outpatient (AMB) | payer BC, SELFPAY ==
--- NOTE | 2024-01-23 13:42 | MHC.PC.OV ---
Vital Signs 01/23/24 13:43 Height 5 ft 3 in Weight 153 lb BMI 27.1 BP 110/72 Blood Pressure Location Lt brachial Position Sitting Pulse 75 Pulse Source Pulse Oximeter Pulse Oximetry (%) 98 Oxygen Delivery Method Room Air Intake Visit Reasons: [facility] rt02/07 02/20 lt Intake Note: Patient is here for a Pre-op for Eye Cataract scheduled with [provider name] on 02/08/2024 and 02/21/24 Pizza Delivery Required: No Allergies Penicillins [PENICILLINS] Allergy (Severe, Verified 01/23/24 14:03) SWELLING amoxicillin Allergy (Unknown, Verified 01/23/24 14:03) swelling penicillin V Allergy (Unknown, Verified 01/23/24 14:03) swelling Medication List - Last Reconciled 01/23/24 by Liane Macias PA-C albuterol sulfate 90 mcg/actuation 2 puffs inhalation Q4-6H PRN 30 days ipratropium bromide 1 intranasal BEDTIME loratadine (Claritin) 10 mg PO DAILY multivitamin 1 tab PO DAILY simvastatin 20 mg PO BEDTIME Tobacco use date assessed: 08/21/23 Fall risk assessment: No Falls in past year Last assessed Fall Risk: 01/23/24 Dental Screening Dental Screen Date: 08/21/23 Did you have a dental visit in the last 12 months?: Yes HPI [facility] rt02/07 02/20 lt HPI Details 63-year-old female with past medical history of hypercholesterolemia, erosive esophagitis with GERD, osteoporosis last seen by Dr. Yates august 2023 coming in for preoperative exam. Patient is scheduled to have cataract surgery with [facility] right eye 02/08/2024 and left eye 02/21/2024. Hypercholesterolemia: Cholesterol at goal on last labs currently on simvastatin 20 mg. Patient has no history of AK, CVA, CHF, or diabetes mellitus. She has had surgery in the past without complication. She has no acute concerns today. [facility] Medical History Obesity (BMI 30-39.9) Lumbar disc herniation Congenital pyloric stenosis Stress incontinence Osteoporosis Vitamin D deficiency Sciatica Anxiety and depression Peripheral vascular disease Alcohol abuse Allergic rhinitis GERD (gastroesophageal reflux disease) Hypercholesterolemia Surgical History History of total right hip arthroplasty History of left hip replacement History of bladder surgery History of tonsillectomy Hx of colonoscopy History of esophagogastroduodenoscopy (EGD) Family History Father HTN (hypertension) Diabetes Mother HTN (hypertension) CVD (cardiovascular disease) Paternal Grandfather Myocardial infarction Paternal Grandmother Myocardial infarction Breast cancer Maternal Grandfather Myocardial infarction Maternal Grandmother Myocardial infarction Social History Household Members: [facility] Alcohol intake: current Alcohol intake frequency: holidays/special occasions only Alcohol type: wine Comment: glass of wine 2-3 x a week Patient Tobacco Use Status: Former Tobacco user Tobacco use type: Cigarette Years Smoked: 18 years old quit e-Cigarette/Vaping Use: Never Used Second Hand Smoke Exposure: No service: No Current occupational status: employed Cognitive needs: No Hearing needs: No Vision needs: No Questionnaire Thrive Questionnaire Date Thrive assessed: 08/21/23 I am a: Patient What is your living situation today?: I have a steady place to live Within the past 12 months, did the food you bought not last and you didn't have the money to get more?: Never true Within the past 12 months, did you worry whether your food would run out before you got money to buy more?: Never true Do you have trouble paying for medicines?: No Do you have trouble getting transportation to medical appointments?: No Do you have trouble paying your heating and electricity bill?: No Do you have trouble taking care of your child, family member or friend?: No Do you have trouble with day-to-day activities such as bathing, preparing meals, shopping, managing finances, etc.?: No Are you currently unemployed and looking for a job?: No Are you interested in more education?: No Please select the resources that you would like help with: None THRIVE Score: 0 AUDIT C Alcohol Use Questionnaire (AUDIT-C) 1. How often do you have a drink containing alcohol?: 2-4 times a month 2. How many drinks containing alcohol do you have on a typical day when you are drinking?: 1 or 2 3. How often do you have six or more drinks on one occasion?: Never Total Score: 2 AUGIE-7 AMB Questionnaire AUGIE-7 Date AUGIE - 7 assessed: 08/21/23 Source: Developed by Drs. Rao Rizo, Lashawn Perez, Quinn Aquino and colleagues, with an educational bernarda from [employer]. Review of Systems Const Denies body aches, Denies fatigue, Denies fever(s), Denies frequent falls, Denies headache(s) and Denies weakness Eyes Denies change in vision and Reports requires corrective lenses ENT Denies dizziness, Denies facial pain, Denies headache(s) and Denies nasal congestion Card Denies chest pain, Denies syncope, Denies irregular heart rhythm, Denies leg edema, Denies lightheadedness and Denies dyspnea Resp Denies cough and Denies dyspnea GI Denies abdominal pain, Denies constipation, Denies dyspepsia, Denies diarrhea, Denies nausea and Denies vomiting Denies urinary frequency, Denies dysuria, Denies urinary hesitancy and Denies urinary urgency Musc Denies back pain and Denies myalgias Skin/Breast Reports system reviewed and no additional complaints, except as documented Neuro Denies dizziness, Denies syncope, Denies frequent falls, Denies headache(s) and Denies weakness Psych Reports no additional complaints Endo Denies fatigue Physical exam (Primary Care) Vital Signs: Last Vital Signs Pulse 75 01/23/24 13:43 BP 110/72 01/23/24 13:43 Pulse Ox 98 01/23/24 13:43 Oxygen Delivery Method Room Air 01/23/24 13:43 BMI result Body Mass Index 27.1 Tobacco/Smoking Status: Tobacco use Status Tobacco use date assessed 08/21/23 01/23/24 13:50 Patient Tobacco Use Status Former Tobacco user 01/23/24 13:50 Tobacco use type Cigarette 01/23/24 13:50 e-Cigarette/Vaping Use Never Used 01/23/24 13:50 Thrive Assessment: Date of Thrive Assessment Date Thrive assessed 08/21/23 01/23/24 13:50 Const General: cooperative, healthy appearing, comfortable and no acute distress Orientation/consciousness: patient oriented x3 HENMT Head: Yes normocephalic Ears: hearing grossly normal bilaterally General nose exam: Normal external nose present Eyes General: appearance normal, both eyes and all related structures Conjunctivae: conjunctivae normal Neck Neck: Yes full ROM and Yes no lymphadenopathy Resp Effort & Inspection: normal respiratory effort Auscultation: clear to auscultation bilaterally, no crackles, no rales, no rhonchi and no wheezes Cardio Rate: regular rate Rhythm: regular rhythm Skin General skin exam: no rashes or lesions noted Neuro General: patient oriented x3 Gait exam (Neuro): Normal gait present Extrem General: Yes normal to inspection, Yes full ROM and No edema Psych Affect: normal affect Attitude: cooperative Insight: Good insight present (Psych) Judgement: Good judgement present (Psych) Office Procedures Flu Questionnaire Does the patient have a severe egg allergy?: No Does the patient have severe life threatening allergies?: No Does the patient have a fever or illness today?: No Has the patient ever had Guillain-[place] Syndrome?: No Has the patient ever had any past reaction to a flu shot?: No Immunizations Fluarix Triv [id number] (PF) 45 mcg (15 mcg x 3)/0.5 mL IM syringe Performing Provider: Liane Macias PA-C [facility] Administered by: KEV Phan on 01/23/24 13:54 Dose Route Admin Location Dispensed Lot Number Expiration Date [facility] Biostatistics Manager 0.5 mL IM Left Deltoid 0.5 mL [id number] 10/06/24 [id number] [facility] V[facility] Given Date VIS Provided VIS Publication Date 01/23/24 Single Vaccine 20 Eligibility Eligibility Date Funding Source Not [facility] Eligible 01/23/24 Private Coding Level of Care Code Est Pt Level 3 (51602) Diagnoses Pre-op evaluation Z01.818 Assessment & Plan Assessment & Plan (1) Pre-op evaluation: Code(s): Z01.818 - Encounter for other preprocedural examination Category: Medical Plan: Regarding preop clearance, the patient is at low-moderate risk for proposed surgery due to age however comorbidities are well managed at this time and she can proceed with contemplate this surgery.? Reviewed with the patient that no surgery is completely free of risk and that this examination is to assist the surgeon in reviewing informed consent. She is nondiabetic, takes no disease modifying drugs, and is not on any anticoagulants or NSAIDs. She has undergone surgery in the past with no complications. Plan This note was constructed using voice recognition software. While every effort has been made to ensure accuracy and wad compressor operator adjuster, still areas may have been included sometimes these areas may affect the content or meeting of the given symptoms. Total time spent caring for the patient today was 30 minutes. This includes time spent before the visit reviewing the chart, time spent during the visit, and time spent after the visit and documentation. Orders: Orders Influenza [id number] Immunization Today Z23 - Encounter for immunization
[2024-01-23 13:43] VITALS: BP 110/72; PULSE 75; O2SAT 98; BMI 27.1
== END 2024-01-23 14:13 | disposition home or self-care (01) ==
PROVIDERS: PCP Internal Medicine
DX: Z23 Encounter for immunization (principal); Z01.818 Encounter for other preprocedural examination

== ENCOUNTER → 2024-01-23 13:42 | Outpatient (BNVA) | payer BC, SELFPAY | PROVIDERS: PCP Internal Medicine | DX: Z01.818 Encounter for other preprocedural examination (principal); Z23 Encounter for immunization | CPT/HCPCS: 90471; 90656 ==

== ENCOUNTER 2024-03-13 13:06 | Outpatient (AMB) | payer BC, SELFPAY ==
--- NOTE | 2024-03-13 13:11 | A.OFFVIS_ITS ---
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 She is doing well with concerns. Currently not sexually active. Denies any vaginal dryness or irritation. STI testing offered; she delined. Attempting to eat a healthy diet with calcium and vitamin D and stays active with exercise-PT. Last pap smear; 2022, negative. Last mammogram; 2023. Colonoscopy is UTD. Denies any family history of ovarian or colon cancer. FH breast cancer. [facility] Medical History Obesity (BMI 30-39.9) Lumbar disc herniation Congenital pyloric stenosis Stress incontinence Osteoporosis Vitamin D deficiency Sciatica Anxiety and depression Peripheral vascular disease Alcohol abuse Allergic rhinitis GERD (gastroesophageal reflux disease) Hypercholesterolemia Surgical History History of total right hip arthroplasty History of left hip replacement History of bladder surgery History of tonsillectomy Hx of colonoscopy History of esophagogastroduodenoscopy (EGD) Family History Father HTN (hypertension) Diabetes Mother HTN (hypertension) CVD (cardiovascular disease) Paternal Grandfather Myocardial infarction Paternal Grandmother Myocardial infarction Breast cancer Maternal Grandfather Myocardial infarction Maternal Grandmother Myocardial infarction Social History Household Members: Family Housing: Condominium Alcohol intake: current Alcohol intake frequency: holidays/special occasions only Alcohol type: wine Comment: glass of wine 2-3 x a week Patient Tobacco Use Status: Former Tobacco user Tobacco use type: Cigarette Years Smoked: 18 years old quit e-Cigarette/Vaping Use: Never Used Second Hand Smoke Exposure: No service: No Current occupational status: employed Cognitive needs: No Hearing needs: No Vision needs: No Female Reproductive History Menstrual Menopause type: natural Total pregnancies: 2 Full term: 2 Number of Living Children: 2 Date of last pap smear: 01/19/23 (neg pap and hpv) Date of Mammogram: 11/01/23 (Birad Birad 1) Date of last Bone Density Screenin11/01/23 Review of Systems Const All systems reviewed & are unremarkable except as noted in HPI and below Reports as per HPI Eyes Reports no additional complaints ENT Reports no additional complaints Card Reports no additional complaints Resp Reports no additional complaints GI Reports as per HPI and Reports no additional complaints Reports as per HPI Musc Reports no additional complaints Skin/Breast Reports as per HPI Neuro Reports no additional complaints Psych Reports no additional complaints Endo Reports no additional complaints Nathaniel/Lymph Reports no additional complaints Aller/Immun Reports no additional complaints Physical Exam Const General: cooperative, healthy appearing, no acute distress, well developed and alert Orientation/consciousness: patient oriented x3 HEENT Head: Yes normal to inspection Eyes General: appearance normal, both eyes and all related structures Neck Neck: Yes normal visual inspection Thyroid: Thyroid normal Chest Chest palpation & inspection: normal inspection of the chest and other (no puckering, dimpling, peau de orange, retraction, discharge, masses) Breast/axilla inspection: normal inspection of the breasts Breast/axilla palpation: normal palpation of the breasts Resp Effort & Inspection: normal respiratory effort GI Inspection: Yes normal to inspection Palpation (GI): Soft to palpation Rectal Exam - Female: deferred General: Yes bladder normal to palpation External Female Exam: normal external appearance and normal appearance of the urethra Speculum Exam - Vagina: normal appearance of the vagina, normal palpation, normal vaginal discharge and vagina atrophic Speculum Exam - Cervix: normal appearance of the cervix and normal palpation Bimanual exam- vagina & uterus: normal bimanual exam, normal palpation, uterine size normal, bladder normal to palpation, normal palpation and non-tender Bimanual Exam- Adnexa, other: no masses Skin General skin exam: no rashes or lesions noted Rashes: no rashes Neuro General: patient oriented x3 Cognition (Neuro): normal cognition Extrem General: Yes normal to inspection Psych Attitude: cooperative Thought process: Normal thought process present Assessment & Plan Assessment & Plan (1) Encounter for well woman exam with routine gynecological exam: Code(s): Z01.419 - Encounter for gynecological examination (general) (routine) without abnormal findings Category: Medical Plan Discussed: Current recommendations for pap smears per ASCCP guidelines. Breast awareness, periodic self breast exams and yearly mammogram. Maintain a healthy lifestyle, well balanced diet including Calcium 1,200 mg and Vitamin D 600 IU daily, and routine exercise. Contact the office with any postmenopausal bleeding. Patient verbalizes understanding and agrees to the plan of care. She was given opportunity to ask questions and all questions were answered to the best of my ability. RTO in 1 year for annual marketing communications assistant exam. [place] with the summer and will seek marketing communications assistant care when establish there. This note is constructed using voice recognition software. While every effort has been made to ensure accuracy, paid search marketing strategist errors may have been included. Coding Level of Care Code Est Pt Prev Care >65y(83029) Diagnoses Encounter for well woman exam with routine gynecological exam Z01.419
[2024-03-13 13:14] VITALS: BP 112/74; BMI 27.5
== END 2024-03-13 14:02 | disposition home or self-care (01) ==
PROVIDERS: PCP Internal Medicine; Visit Provider Advanced Practice Midwife
DX: Z01.419 Encounter for gynecological examination (general) (routine) without abnormal findings (principal)
CPT/HCPCS: 99397

== ENCOUNTER → 2024-03-13 13:06 | Outpatient (BNVA) | payer BC, SELFPAY | PROVIDERS: PCP Internal Medicine; Visit Provider Advanced Practice Midwife ==

== ENCOUNTER 2024-06-17 11:32 | Outpatient (AMB) | payer BC, SELFPAY ==
--- NOTE | 2024-06-17 11:37 | MHC.PC.OV ---
Vital Signs 06/17/24 11:39 Height 5 ft 3 in Weight 156 lb 6 oz BMI 27.7 BP 100/60 Blood Pressure Location Lt brachial Position Sitting Pulse 85 Pulse Source Pulse Oximeter Temp 97.7 F Temp Source Temporal Artery Scan Pulse Oximetry (%) 98 Oxygen Delivery Method Room Air Intake Visit Reasons: Derm Referral Request Intake Note: Patient is here to follow up on Dermatology referral. Donor Support Technician Required: No Shoe Shiner: Not Required per policy Accompanied by: Self / Same As Patient Allergies Penicillins [PENICILLINS] Allergy (Severe, Verified 06/17/24 11:38) SWELLING amoxicillin Allergy (Unknown, Verified 06/17/24 11:38) swelling penicillin V Allergy (Unknown, Verified 06/17/24 11:38) swelling Tobacco use date assessed: 06/17/24 Fall risk assessment: No Falls in past year Last assessed Fall Risk: 06/17/24 Dental Screening Dental Screen Date: 06/17/24 Did you have a dental visit in the last 12 months?: Yes Did you have a dental problem in the last 6 months where you did not have access to dental care?: No Was dental information given to patient?: Patient has dentist HPI Derm Referral Request HPI Details rash on scalp, upper back and both elbow x 1 month [facility] Medical History Obesity (BMI 30-39.9) Lumbar disc herniation Congenital pyloric stenosis Stress incontinence Osteoporosis Vitamin D deficiency Sciatica Anxiety and depression Peripheral vascular disease Alcohol abuse Allergic rhinitis GERD (gastroesophageal reflux disease) Hypercholesterolemia Surgical History History of total right hip arthroplasty History of left hip replacement History of bladder surgery History of tonsillectomy Hx of colonoscopy History of esophagogastroduodenoscopy (EGD) Family History (Updated 06/17/24 @ 11:37 by KEV Emery) Father HTN (hypertension) Diabetes Mother HTN (hypertension) CVD (cardiovascular disease) Paternal Grandfather Myocardial infarction Paternal Grandmother Myocardial infarction Breast cancer Maternal Grandfather Myocardial infarction Maternal Grandmother Myocardial infarction Social History Household Members: [facility] Alcohol intake: current Alcohol intake frequency: holidays/special occasions only Alcohol type: wine Comment: glass of wine 2-3 x a week Patient Tobacco Use Status: Former Tobacco user Tobacco use type: Cigarette Years Smoked: 18 years old quit e-Cigarette/Vaping Use: Never Used Second Hand Smoke Exposure: Yes service: No Current occupational status: employed Cognitive needs: No Hearing needs: No Vision needs: No Questionnaire PHQ-9 Over the last 2 weeks, how often have you been bothered by any of the following problems? 1. Little interest or pleasure in doing things: not at all 2. Feeling down, depressed, or hopeless: not at all 3. Trouble falling or staying asleep, or sleeping too much: not at all 4. Feeling tired or having little energy: not at all 5. Poor appetite or overeating: not at all 6. Feeling bad about yourself - or that you are a failure or have let yourself or your family down: not at all 7. Trouble concentrating on things, such as reading the newspaper or watching television: not at all 8. Moving or speaking so slowly that other people could have noticed. Or the opposite - being so fidgety or restless that you have been moving around a lot more than usual: not at all 9. Thoughts that you would be better off or of hurting yourself in some way: not at all Total score: 0 Depression Screening Interpretation: Negative Depression Screening Done: Yes Source: Developed by Drs. Rao Rizo, Lashawn Perez, Quinn Aquino and colleagues, with an educational bernarda from [employer]. Thrive Questionnaire Date Thrive assessed: 06/17/24 I am a: Patient What is your living situation today?: I have a steady place to live Within the past 12 months, did the food you bought not last and you didn't have the money to get more?: Never true Within the past 12 months, did you worry whether your food would run out before you got money to buy more?: Never true Do you have trouble paying for medicines?: No Do you have trouble getting transportation to medical appointments?: No Do you have trouble paying your heating and electricity bill?: No Do you have trouble taking care of your child, family member or friend?: No Do you have trouble with day-to-day activities such as bathing, preparing meals, shopping, managing finances, etc.?: No Are you currently unemployed and looking for a job?: No Are you interested in more education?: No Please select the resources that you would like help with: None Currently or been in a relationship where the following occur: No concerns reported THRIVE Score: 0 AUDIT C Alcohol Use Questionnaire (AUDIT-C) 1. How often do you have a drink containing alcohol?: 2-4 times a month 2. How many drinks containing alcohol do you have on a typical day when you are drinking?: 1 or 2 Total Score: 2 AUGIE-7 AMB Questionnaire AUGIE-7 Date AUGIE - 7 assessed: 06/17/24 Feeling nervous, anxious, or on edge: 0 = Not at all Not being able to stop or control worryin = Not at all Worrying too much about different things: 0 = Not at all Trouble relaxin = Not at all Being so restless that it is hard to sit still: 0 = Not at all Becoming easily annoyed or irritable: 0 = Not at all Feeling afraid as if something awful might happen: 0 = Not at all Total AUGIE-7 score (0-4 normal; 5-9 mild; 10-14 moderate; 15-21 severe): 0 Source: Developed by Drs. Rao Rizo, Lashawn Perez, Quinn Aquino and colleagues, with an educational bernarda from [employer]. Physical exam (Primary Care) Vital Signs: Last Vital Signs Temp 97.7 F 06/17/24 11:39 Pulse 85 06/17/24 11:39 BP 100/60 06/17/24 11:39 Pulse Ox 98 06/17/24 11:39 Oxygen Delivery Method Room Air 06/17/24 11:39 BMI result Body Mass Index 27.7 Tobacco/Smoking Status: Tobacco use Status Tobacco use date assessed 06/17/24 06/17/24 11:44 Patient Tobacco Use Status Former Tobacco user 06/17/24 11:44 Tobacco use type Cigarette 06/17/24 11:44 e-Cigarette/Vaping Use Never Used 06/17/24 11:44 PHQ-9: PHQ-9 Score PHQ-9: Total score 0 06/17/24 12:18 Depression Screening Interpretation: Negative Thrive Assessment: Date of Thrive Assessment Date Thrive assessed 06/17/24 06/17/24 11:44 Currently or been in a relationship where the following occur: No concerns reported Const General: alert; No acute distress Eyes Conjunctivae: conjunctivae normal Resp Auscultation: clear to auscultation bilaterally Cardio Rate: regular rate Rhythm: regular rhythm GI Inspection: Yes normal to inspection Skin Other: occipital scalp rash scaly and erythematous, upper back rash faint redness, bilateral elbow rash withscaliness Extrem General: Yes normal to inspection and No edema Immunizations pneumoc 20-javan conj-dip cr(PF) 0.5 mL IM syringe Performing Provider: Karley Yates MD [facility] Administered by: Idania Fraga CMA on 06/17/24 12:18 Dose Route Admin Location Dispensed Lot Number Expiration Date [employer] Liaison 0.5 mL IM Left Deltoid 0.5 mL [id number] 08/07/25 0187-8070-00 Private Outlet/[employer] VIS Given Date VIS Provided VIS Publication Date 06/17/24 Single Vaccine 21 Eligibility Eligibility Date Funding Source Not [facility] Eligible 06/17/24 Private Coding Level of Care Code Est Pt Level 4 (67205) Diagnoses Hypercholesterolemia E78.00 GERD (gastroesophageal reflux disease) K21.9 Seborrheic dermatitis L21.9 Eczematous dermatitis L30.9 Assessment & Plan Assessment & Plan (1) Hypercholesterolemia: Code(s): E78.00 - Pure hypercholesterolemia, unspecified Category: Medical Plan: Avoid fried foods, chicken skin, eggs, butter margarine, pastries and meat. Be it pork or beef they have a lot of cholesterol LDL goal of less than 130 and triglyceride of less than 150. Last blood work 08/27/2023 (2) GERD (gastroesophageal reflux disease): Code(s): K21.9 - Gastro-esophageal reflux disease without esophagitis Category: Medical Plan: Avoid the foods that causes that usually spicy foods, tomato products, juices, coffee, soda and foods that your sensitive to. After eating do not lie down, allow 3-4 hours before in lie down. And keep the head of bed above 30 degrees to avoid the acid from going up. (3) Seborrheic dermatitis: Code(s): L21.9 - Seborrheic dermatitis, unspecified Category: Medical (4) Eczematous dermatitis: Code(s): L30.9 - Dermatitis, unspecified Category: Medical Plan History of Present Illness The patient is a 63-year-old female presenting with pruritic, dry rashes on the scalp and elbows for approximately one month. She describes these rashes as having itchy and scabbing characteristics, with episodic relief from topical treatments. Her past medical history is significant for hypercholesterolemia, managed effectively, osteoporotic changes visualized in her November 2023 DEXA scan, and longstanding GERD managed with a preventive reflux plan. Additionally, her blood tests from August 2023 revealed macrocytosis without anemia, while her cholesterol management remained on target with an LDL goal below 130 mg/dL. She discussed a history of pyloric stenosis, which resulted in a noticeably large scar on her belly. She reported a bruise on this scar but no associated pain, with its intensity declining over time. She also shared concerns regarding decreasing energy levels, which she attributes in part to seasonal changes and increased responsibilities due to her mother's declining health requiring increased care. Health Maintenance - Mammogram up to date as of January 2024. - Colonoscopy last completed in 2016; repeat screening may be due. - Bone density scan in November 2023 showed progression of osteoporosis. - Blood work from August 2023 showed cholesterol managed to goal values. - Pneumococcal vaccine, specifically Prevnar 20, was discussed and recommended. - Regular follow-up for monitoring macrocytosis and energy levels. Social History - Retired, previously active in hairdressing. - Currently assuming caregiving responsibilities for her elderly mother, impacting her activity levels. - Engages in regular walk-based physical activity; experiences a decline in motivation during colder months. - Reports changes in home chores management attributed to her mother's declining health. - History of adjusting hair treatment routines for better health outcomes. Review of Systems - Skin: Reports persistent itchy, dry rashes on the scalp and elbows for one month. - General: Reports fatigue, particularly post exertion and on weekends, potentially exacerbated by seasonal conditions. - Gastrointestinal: Denies current GERD-related symptoms ( reflux plan okay ). - Respiratory: Denies breathing difficulties; no use of inhalers reported. - Psychological: Expresses concerns regarding fatigue and seasonal affective changes. Physical Exam Results - Labs: August 2023 blood work revealed macrocytosis with normal anemia screening and satisfactory cholesterol levels. - Imaging: Bone density November 2023 confirmed osteoporosis. - Vaccinations: Pneumonia vaccination due. Plan The patient is advised to apply stronger steroid creams for her dermatological condition, and a dermatology referral is being arranged. Continued management of osteoporosis through bone density scans is indicated, while her hypercholesterolemia remains well managed with current treatment. Further blood work before the next follow-up will be assessed to further evaluate any potential link to her noted macrocytosis and fatigue. The patient is also encouraged to receive her pneumococcal vaccination for continued preventive health. Lifestyle recommendations were discussed, including balancing activity levels relative to seasonally induced energy changes. Patient was informed and verbally consented to the use of an ambient scribe for clinic note documentation during this visit. Discussion Notes I reviewed the likely differential diagnoses for the patient's current dermatological condition, emphasizing eczema and possibly psoriasis. Discussions included the trial of stronger topical steroids, with a dermatology referral for further evaluation. We addressed lifestyle impacts on her current fatigue complaints, suggesting further evaluation. Preventive care points included the administration of the Prevnar 20 vaccine, with an acknowledgment of her well-maintained cholesterol levels. We discussed the need for updated blood work before her next visit to monitor macrocytosis, with emphasis on continuous outpatient follow-ups to manage ongoing chronic conditions. Agreement on treatment strategies was reached, with attention to the risks and benefits discussed for her current medications and planned interventions. Patient Instructions - Apply the prescribed steroid cream as directed for rash symptoms. - Attend scheduled dermatology referral for comprehensive skin assessment. - Receive the recommended pneumococcal vaccine. - Continue current therapies for hypercholesterolemia and osteoporosis. - Stay active and monitor energy levels, especially during seasonal changes. - Follow up on laboratory evaluations before the next scheduled appointment. - Report any new symptoms or concerns promptly, especially if fatigue worsens. Orders: Orders Complete Blood Count Auto Diff Today K21.9 - Gastro-esophageal reflux disease without esophagitis Vitamin B12 and Folate Today K21.9 - Gastro-esophageal reflux disease without esophagitis Vitamin D 25-OH Total Today K21.9 - Gastro-esophageal reflux disease without esophagitis Lipid Panel Today E78.00 - Pure hypercholesterolemia, unspecified, K21.9 - Gastro-esophageal reflux disease without esophagitis Comprehensive Met. Panel Today K21.9 - Gastro-esophageal reflux disease without esophagitis Free T4 (Free Thyroxine) Today K21.9 - Gastro-esophageal reflux disease without esophagitis Thyroid Stimulating Hormone Today K21.9 - Gastro-esophageal reflux disease without esophagitis UA CC w/rflx Micro + Cult Today K21.9 - Gastro-esophageal reflux disease without esophagitis, R30.0 - Dysuria Pneumococcal 20 Immunization Today Z23 - Encounter for immunization Referrals Dermatology Referral L30.9 - Dermatitis, unspecified Medications: New ketoconazole 2% 1 appl topical 2XW 120 mL 0RF L21.9 - Seborrheic dermatitis, unspecified triamcinolone acetonide 0.5% 1 appl topical BID 30 grams 0RF L30.9 - Dermatitis, unspecified
[2024-06-17 11:39] VITALS: BP 100/60; PULSE 85; TEMP 36.5; O2SAT 98; BMI 27.7
== END 2024-06-17 12:22 | disposition home or self-care (01) ==
LOC: HO.HMCH 11:32
PROVIDERS: PCP Internal Medicine; Visit Provider Internal Medicine
DX: E78.00 Pure hypercholesterolemia, unspecified (principal); K21.9 Gastro-esophageal reflux disease without esophagitis; L21.9 Seborrheic dermatitis, unspecified; L30.9 Dermatitis, unspecified; Z23 Encounter for immunization

== ENCOUNTER → 2024-06-17 11:32 | Outpatient (BNVA) | payer BC, SELFPAY | PROVIDERS: PCP Internal Medicine; Visit Provider Internal Medicine | DX: E78.00 Pure hypercholesterolemia, unspecified (principal); Z23 Encounter for immunization; K21.9 Gastro-esophageal reflux disease without esophagitis; L21.9 Seborrheic dermatitis, unspecified; L30.9 Dermatitis, unspecified | CPT/HCPCS: 90471; 90677; 96127 ==

== ENCOUNTER 2024-07-30 08:25 | Outpatient (REF) | payer BC, SELFPAY ==
[2024-07-30 08:44] LABS: MANUAL DIFF FLAG NO
[2024-07-30 09:01] LABS: Basophils Absolute Auto 0.1 X10*3/uL (0.0-0.2); Basophils Percent Auto 0.6 % (0-2); Eosinophils Absolute Auto 0.3 X10*3/uL (0.0-0.4); Hematocrit 39.5 % (37.0-47.0); Hemoglobin 13.2 g/dl (12.0-16.0); Imm Gran Abs Auto 0.07 X10*3/uL (0.00-0.03); Imm Gran Pct Auto 0.9 % (0.0-0.4); Lymphocytes Absolute Auto 1.8 X10*3/uL (1.2-4.9); Lymphocytes Percent Auto 22.4 % (20-40); Mean Corpuscular HGB Conc 33.4 g/dl (31.0-35.0); Mean Corpuscular Hemoglobin 32.4 pg (27.0-33.0); Mean Corpuscular Volume 96.8 fL (80.0-98.0); Mean Platelet Volume 10.2 fL (9.4-12.3); Monocytes Absolute Auto 0.7 X10*3/uL (0.1-1.2); Monocytes Percent Auto 8.6 % (2-11); Neutrophils Absolute Auto 5.2 x10*3/uL (2.0-8.3); Neutrophils Percent Auto 63.5 % (45-73); Platelet Count 277 X10*3/uL (160-400); Red Blood Count 4.08 X10*6/uL (4.20-5.50); Red Cell Distribution Width 12.1 % (11.0-16.0); White Blood Count 8.2 X10*3/uL (4.8-10.8)
[2024-07-30 09:58] LABS: Alanine Aminotransferase 15 U/L (0-31); Albumin Level 3.9 g/dL (3.5-5.0); Alkaline Phosphatase 82 U/L (39-117); Anion Gap 9 (12-20); Aspartate Amino Transferase 23 U/L (5-31); Bilirubin Total 0.6 mg/dL (0.0-1.0); Blood Urea Nitrogen 11 mg/dL (9-16); Carbon Dioxide 27 mmol/L (22-29); Chloride 107 mmol/L (96-108); Cholesterol 258 mg/dL (<200); Estimated Glomerular Filt Rate > 60; Glucose Random 93 mg/dL (60-115); HDL Cholesterol 62 mg/dL (>40); LDL Cholesterol Calculated 179 mg/dL (<100); Potassium 4.1 mmol/L (3.3-5.1); Sodium 139 mmol/L (135-145); Total Protein 6.8 g/dL (6.5-8.0); Triglycerides 86 mg/dL (<150)
[2024-07-30 10:20] LABS: Free T4 (Free Thyroxine) 1.12 ng/dL (0.71-1.85); Thyroid Stimulating Hormone 0.93 uIU/mL (0.32-4.0); Vitamin D 25-OH Total 35.1 ng/mL (>30)
[2024-07-30 10:23] LABS: Folate 13.2 ng/mL (> or = 4.0); Vitamin B12 493 pg/mL (200-900)
== END 2024-07-30 08:26 | disposition home or self-care (01) ==
LOC: HO.LAB 08:25
PROVIDERS: PCP Internal Medicine; Visit Provider Internal Medicine
DX: K21.9 Gastro-esophageal reflux disease without esophagitis (principal); K22.10 Ulcer of esophagus without bleeding; E78.00 Pure hypercholesterolemia, unspecified
CPT/HCPCS: 36415; 80053; 80061; 82306; 82607; 82746; 84439; 84443; 85025

== ENCOUNTER 2024-07-30 09:29 | Outpatient (AMB) | payer BC, SELFPAY ==
--- NOTE | 2024-07-30 09:47 | MHC.OFFVIS ---
Vital Signs 07/30/24 09:48 Height 5 ft 3 in Weight 157 lb BMI 27.8 BP 120/60 Blood Pressure Location Lt brachial Position Sitting Pulse 89 Pulse Oximetry (%) 100 Oxygen Delivery Method Room Air Intake Visit Reasons: 1 yr follow up lymphocytic colitis, GERD Intake Note: Patient yearly follow up for lymphocytic colitis and GERD. Patient cc: GERD on and off, soft stool and different color between dark green and brown. Denies any other GI issues for today. Environmental Maintenance Worker Required: No Accompanied by: Self / Same As Patient Allergies Penicillins [PENICILLINS] Allergy (Severe, Verified 07/30/24 09:46) SWELLING amoxicillin Allergy (Unknown, Verified 07/30/24 09:46) swelling penicillin V Allergy (Unknown, Verified 07/30/24 09:46) swelling HPI HPI 1 yr follow up lymphocytic colitis, GERD: Details: Assessment & Plan (1) GERD (gastroesophageal reflux disease): Code(s): K21.9 - Gastro-esophageal reflux disease without esophagitis Category: Medical (2) Lymphocytic colitis: Code(s): K52.832 - Lymphocytic colitis Category: Medical Plan She is doing much better since she moved out of her old house, she may have a lot of environmental allergies that c/t her severe GERD and diarrhea. She has not needed her famotidine, but had it refilled for prn use. She continues on her budesinide and she wants to experiment weaning off of the budesinide and we discuss a weaning schedule. She is now living with her mother. She has found that red wine is a trigger for her sx so she avoids this. She is in the process of moving to [place]! She has a lot to think about. This will be happening in about a year and tyron LUKE 1 year. Medications: Refilled budesonide DR-ER 3 mg PO DAILY 30 caps 11RF 30 days K52.832 - Lymphocytic colitis TODAY'S VISIT This will be our last visit!! [place] is moving to [place] with her mother. She was in PT and doing well, but ow she can't afford to keep going. Now she is gaining weight again. She is no longer taking budesonide and she is maintaining her stooling with soft green to dark brown stools - but she is changing her diet and eatin [place] LOT of kale and spinach likely coloring the stools. She has no abd pain or problems. [facility] Medical History (Updated 07/30/24 @ 10:28 by PANFILO Mallory) Annual physical exam COVID-19 virus infection Encounter for well woman exam with routine gynecological exam Obesity (BMI 30-39.9) Lumbar disc herniation Congenital pyloric stenosis Stress incontinence Osteoporosis Vitamin D deficiency Sciatica Anxiety and depression Peripheral vascular disease Alcohol abuse Allergic rhinitis GERD (gastroesophageal reflux disease) Hypercholesterolemia Surgical History History of total right hip arthroplasty History of left hip replacement History of bladder surgery History of tonsillectomy Hx of colonoscopy History of esophagogastroduodenoscopy (EGD) Family History Father HTN (hypertension) Diabetes Mother HTN (hypertension) CVD (cardiovascular disease) Paternal Grandfather Myocardial infarction Paternal Grandmother Myocardial infarction Breast cancer Maternal Grandfather Myocardial infarction Maternal Grandmother Myocardial infarction Social History Household Members: Family Housing: Condominium Alcohol intake: current Alcohol intake frequency: holidays/special occasions only Alcohol type: wine Comment: glass of wine 2-3 x a week Patient Tobacco Use Status: Former Tobacco user Tobacco use type: Cigarette Years Smoked: 18 years old quit e-Cigarette/Vaping Use: Never Used Second Hand Smoke Exposure: Yes service: No Current occupational status: employed Cognitive needs: No Hearing needs: No Vision needs: No Review of Systems Const Denies fatigue, Denies fever(s), Denies night sweats, Denies poor appetite and Denies weight loss ENT Reports Normal hearing present, Denies dental pain, Denies dysphagia, Denies hearing loss, Denies mouth pain, Denies odynophagia, Denies throat swelling, Denies tongue swelling and Reports other (Dentition adequate) Card Reports no additional complaints Resp Reports no additional complaints GI Details: Denies abdominal pain, Denies melena, Denies bloating, Denies hematochezia, Denies constipation, Denies GI cramping, Denies dysphagia, Denies excessive flatus, Denies early satiety, Denies heartburn, Denies diarrhea, Reports loose stools, Denies nausea, Denies odynophagia, Denies vomiting and Denies hematemesis Skin/Breast Denies pruritus, Denies lesions, Denies rash and Denies jaundice Neuro Reports Normal hearing present and Denies Abnormal speech present Endo Denies fatigue Aller/Immun Denies throat swelling and Denies tongue swelling Physical Exam Vital Signs: Last Vital Signs Pulse 89 07/30/24 09:48 BP 120/60 07/30/24 09:48 Pulse Ox 100 07/30/24 09:48 Oxygen Delivery Method Room Air 07/30/24 09:48 BMI result Body Mass Index 27.8 Const General: cooperative, no acute distress, well developed and well groomed Nutritional Appearance: well nourished and obese Orientation/consciousness: oriented to person, oriented to place and oriented to time Limitations: No language barrier HEENT Head: Yes normocephalic and Yes atraumatic Eyes General: appearance normal, both eyes and all related structures Pupils: Equal, round and reactive pupils present Neck Neck: Yes normal visual inspection and Yes no lymphadenopathy Thyroid: Thyroid normal Resp Effort & Inspection: normal respiratory effort and able to speak in complete sentences Auscultation: clear to auscultation bilaterally Cardio Rate: regular rate Rhythm: regular rhythm Heart sounds: Normal, physiologic split S2 sound present Peripheral pulses: radial pulses present and posterior tibial pulses present GI Inspection: No distended, No Abdominal panniculus present and Yes obesity Palpation (GI): Soft to palpation, nontender, no guarding, not rigid and No hepatosplenomegaly present Percussion: Yes normal to percussion Auscultation: normal bowel sounds Rectal Exam - Female: deferred Skin General skin exam: no rashes or lesions noted, turgor normal, skin not dry, no jaundice, No spider nevi and no striae Rashes: no rashes Nails: normal Neuro General: oriented to person, oriented to place and oriented to time Cranial nerves: Yes Equal, round and reactive pupils present and Yes Normal hearing present Speech: No Abnormal speech present Extrem General: Yes normal to inspection, No clubbing, No cyanosis and No edema Psych Appearance: grossly normal and well kempt Mental Status: mental status grossly normal Speech and movement: Normal speech and movement present Affect: normal affect Attitude: cooperative Thought process: Normal thought process present and not confabulating Thought content: Normal thought content present Insight: Good insight present (Psych) Judgement: Good judgement present (Psych) Assessment & Plan Assessment & Plan (1) GERD (gastroesophageal reflux disease): Code(s): K21.9 - Gastro-esophageal reflux disease without esophagitis Category: Medical (2) Erosive esophagitis: Code(s): K22.10 - Ulcer of esophagus without bleeding Category: Medical Plan This will be our last visit!! She is moving to [place] with her mother. She was in PT and doing well, but ow she can't afford to keep going. Now she is gaining weight again. She is no longer taking budesonide and she is maintaining her stooling with soft green to dark brown stools - but she is changing her diet and eating a LOT of kale and spinach likely coloring the stools. She has no abd pain or problems Coding Level of Care Code Est Pt Level 3 (47057) Diagnoses GERD (gastroesophageal reflux disease) K21.9 Erosive esophagitis K22.10
[2024-07-30 09:48] VITALS: BP 120/60; PULSE 89; O2SAT 100; BMI 27.8
== END 2024-07-30 10:46 | disposition home or self-care (01) ==
PROVIDERS: PCP Internal Medicine; Visit Provider Nurse Practitioner
DX: K21.9 Gastro-esophageal reflux disease without esophagitis (principal); K22.10 Ulcer of esophagus without bleeding
CPT/HCPCS: 99213

== ENCOUNTER 2024-07-31 11:10 | Outpatient (REF) | payer BC, SELFPAY ==
[2024-07-31 11:57] LABS: Appearance Urine Clear; Color Urine Yellow; Glucose Urine UA Negative (Negative); Leukocyte Esterase Urine Negative (Negative); Nitrite Urine Negative (Negative); UMIC TRIGGER UACC YES; Urine Blood Trace (Negative); Urine Ketones Negative (Negative); Urine Protein Negative (Neg-Trace)
[2024-07-31 12:01] LABS: Bacteria Urine None Seen (None Seen); Hyaline Casts Urine 0-2 /LPF (0-2); RBC Urine 0-2 /HPF (0-2); Squamous Epithelial Cell Urine 0-2 /HPF (0-2); WBC Urine 0-5 /HPF (0-5)
== END 2024-07-31 11:11 | disposition home or self-care (01) ==
LOC: HO.LNP 11:10
PROVIDERS: Visit Provider Internal Medicine
DX: R30.0 Dysuria (principal); K21.9 Gastro-esophageal reflux disease without esophagitis
CPT/HCPCS: 81001

== ENCOUNTER 2024-08-07 13:39 | Outpatient (AMB) | payer BC, SELFPAY ==
[2024-08-07 13:46] VITALS: BP 118/76; PULSE 93; O2SAT 98; BMI 28.5
--- NOTE | 2024-08-07 13:46 | A.OFFPC_ITS ---
Vital Signs 08/07/24 13:46 Height 5 ft 3 in Weight 161 lb 2 oz BMI 28.5 BP 118/76 Blood Pressure Location Lt brachial Position Sitting Pulse 93 Pulse Source Pulse Oximeter Pulse Oximetry (%) 98 Oxygen Delivery Method Room Air Intake Visit Reasons: Bilateral feet/ankle swelling Tile Shader Required: No Accompanied by: Self / Same As Patient Allergies Penicillins [PENICILLINS] Allergy (Severe, Verified 08/07/24 14:07) SWELLING amoxicillin Allergy (Unknown, Verified 08/07/24 14:07) swelling penicillin V Allergy (Unknown, Verified 08/07/24 14:07) swelling Medication List - Last Reconciled 08/07/24 by Liane Macias PA-C albuterol sulfate 90 mcg/actuation 2 puffs inhalation Q4-6H PRN 30 days clotrimazole 1% 1 appl topical BID 4 weeks ipratropium bromide 1 intranasal BEDTIME ketoconazole 2% 1 appl topical 2XW loratadine (Claritin) 10 mg PO DAILY multivitamin 1 tab PO DAILY simvastatin 40 mg PO BEDTIME triamcinolone acetonide 0.5% 1 appl topical BID Tobacco use date assessed: 08/07/24 Fall risk assessment: No Falls in past year Last assessed Fall Risk: 08/07/24 Dental Screening Dental Screen Date: 08/07/24 Did you have a dental visit in the last 12 months?: Yes Did you have a dental problem in the last 6 months where you did not have access to dental care?: No Was dental information given to patient?: Patient has dentist HPI Bilateral feet/ankle swelling HPI Details 63-year-old female with past medical his tory of hypercholesterolemia, erosive esophagitis with GERD, osteoporosis last seen by Dr. Yates 06/2024 coming in for acute problem. In review of the notes, patient was seen by GI 07/2024 patient is moving to [place] with her mother is maintaining her stooling with dietary measures. Presenting with evaluation of foot pain and swelling. Reports left foot swelling onset approximately a week ago, describing pronounced swelling and tightness on the top of the foot, with no injury preceding. Notably, there is heel pain, described as being potentially from a heel spur, exacerbated by walking. The patient denies shortness of breath, recent long trips, smoking, or cardiovascular complications. There is acknowledgment of increased stress due to life changes, attributed to moving and caretaking responsibilities for her elderly mother. [facility] Medical History Annual physical exam COVID-19 virus infection Encounter for well woman exam with routine gynecological exam Obesity (BMI 30-39.9) Lumbar disc herniation Congenital pyloric stenosis Stress incontinence Osteoporosis Vitamin D deficiency Sciatica Anxiety and depression Peripheral vascular disease Alcohol abuse Allergic rhinitis GERD (gastroesophageal reflux disease) Hypercholesterolemia Surgical History History of total right hip arthroplasty History of left hip replacement History of bladder surgery History of tonsillectomy Hx of colonoscopy History of esophagogastroduodenoscopy (EGD) Family History Father HTN (hypertension) Diabetes Mother HTN (hypertension) CVD (cardiovascular disease) Paternal Grandfather Myocardial infarction Paternal Grandmother Myocardial infarction Breast cancer Maternal Grandfather Myocardial infarction Maternal Grandmother Myocardial infarction Social History Household Members: Family Housing: Condominium Alcohol intake: current Alcohol intake frequency: holidays/special occasions only Alcohol type: wine Comment: glass of wine 2-3 x a week Patient Tobacco Use Status: Former Tobacco user Tobacco use type: Cigarette Years Smoked: 18 years old quit e-Cigarette/Vaping Use: Never Used Second Hand Smoke Exposure: Yes service: No Current occupational status: employed Cognitive needs: No Hearing needs: No Vision needs: No Questionnaire PHQ-9 Over the last 2 weeks, how often have you been bothered by any of the following problems? 1. Little interest or pleasure in doing things: several days 2. Feeling down, depressed, or hopeless: several days 3. Trouble falling or staying asleep, or sleeping too much: several days 4. Feeling tired or having little energy: several days 5. Poor appetite or overeating: several days 6. Feeling bad about yourself - or that you are a failure or have let yourself or your family down: not at all 7. Trouble concentrating on things, such as reading the newspaper or watching television: not at all 8. Moving or speaking so slowly that other people could have noticed. Or the opposite - being so fidgety or restless that you have been moving around a lot more than usual: several days 9. Thoughts that you would be better off or of hurting yourself in some way: not at all Total score: 6 Depression Screening Interpretation: Positive Depression Screening Done: Yes Source: Developed by Drs. Rao Rizo, Lashawn Perez, Quinn Aquino and colleagues, with an educational bernarda from [employer]. Thrive Questionnaire Date Thrive assessed: 08/07/24 I am a: Parent/Caregiver What is your living situation today?: I have a steady place to live Within the past 12 months, did the food you bought not last and you didn't have the money to get more?: Never true Within the past 12 months, did you worry whether your food would run out before you got money to buy more?: Never true Do you have trouble paying for medicines?: No Do you have trouble getting transportation to medical appointments?: No Do you have trouble paying your heating and electricity bill?: No Do you have trouble taking care of your child, family member or friend?: No Do you have trouble with day-to-day activities such as bathing, preparing meals, shopping, managing finances, etc.?: No Are you currently unemployed and looking for a job?: No Are you interested in more education?: No Please select the resources that you would like help with: None Currently or been in a relationship where the following occur: No concerns reported THRIVE Score: 0 AUDIT C Alcohol Use Questionnaire (AUDIT-C) 1. How often do you have a drink containing alcohol?: 2-4 times a month 2. How many drinks containing alcohol do you have on a typical day when you are drinking?: 1 or 2 3. How often do you have six or more drinks on one occasion?: Never Total Score: 2 AUGIE-7 AMB Questionnaire AUGIE-7 Date AUGIE - 7 assessed: 08/07/24 Feeling nervous, anxious, or on edge: 1 = Several days Not being able to stop or control worryin = Several days Worrying too much about different things: 1 = Several days Trouble relaxin = Not at all Being so restless that it is hard to sit still: 0 = Not at all Becoming easily annoyed or irritable: 0 = Not at all Feeling afraid as if something awful might happen: 0 = Not at all Total AUGIE-7 score (0-4 normal; 5-9 mild; 10-14 moderate; 15-21 severe): 3 Source: Developed by Drs. Rao Rizo, Lashawn Perez, Quinn Aquino and colleagues, with an educational bernarda from [employer]. Review of Systems Const Denies body aches, Denies chills, Denies fever(s), Denies headache(s) and Denies poor appetite Eyes Reports no additional complaints ENT Denies dizziness and Denies headache(s) Card Denies chest pain, Denies lightheadedness and Denies dyspnea Resp Denies cough and Denies dyspnea GI Denies nausea and Denies vomiting Reports no additional complaints Musc Reports as per HPI and Denies abnormal gait Skin/Breast Reports system reviewed and no additional complaints, except as documented Neuro Denies abnormal gait, Denies dizziness and Denies headache(s) Psych Reports no additional complaints Physical exam (Primary Care) Vital Signs: Last Vital Signs Pulse 93 08/07/24 13:46 BP 118/76 08/07/24 13:46 Pulse Ox 98 08/07/24 13:46 Oxygen Delivery Method Room Air 08/07/24 13:46 BMI result Body Mass Index 28.5 Tobacco/Smoking Status: Tobacco use Status Tobacco use date assessed 08/07/24 08/07/24 13:54 Patient Tobacco Use Status Former Tobacco user 08/07/24 13:54 Tobacco use type Cigarette 08/07/24 13:54 e-Cigarette/Vaping Use Never Used 08/07/24 13:54 PHQ-9: PHQ-9 Score PHQ-9: Total score 6 08/07/24 13:54 Depression Screening Interpretation: Positive Thrive Assessment: Date of Thrive Assessment Date Thrive assessed 08/07/24 08/07/24 13:54 Currently or been in a relationship where the following occur: No concerns reported Const General: cooperative, healthy appearing, comfortable and no acute distress Orientation/consciousness: patient oriented x3 HENMT Head: Yes normocephalic Ears: hearing grossly normal bilaterally General nose exam: Normal external nose present Eyes General: appearance normal, both eyes and all related structures Conjunctivae: conjunctivae normal Neck Neck: Yes full ROM and Yes no lymphadenopathy Resp Effort & Inspection: normal respiratory effort Auscultation: clear to auscultation bilaterally, no crackles, no rales, no rhonchi and no wheezes Cardio Rate: regular rate Rhythm: regular rhythm Skin General skin exam: no rashes or lesions noted Neuro General: patient oriented x3 Gait exam (Neuro): Normal gait present Extrem Other: Tenderness to palpation and swelling of dorsal aspect of left foot and left ankle. No tenderness to palpation of bilateral calves and no overlying erythema or warmth. Tenderness to palpation over right heel without swelling, redness or warmth. Pulses, strength and sensation intact in bilateral lower extremities General: Yes normal to inspection, Yes full ROM and Yes edema (Left foot) Psych Affect: normal affect Attitude: cooperative Insight: Good insight present (Psych) Judgement: Good judgement present (Psych) Coding Level of Care Code Est Pt Level 4 (61241) Diagnoses Overweight (BMI 25.0-29.9) E66.3 Left leg swelling M79.89 Pain of right heel M79.671 Assessment & Plan Assessment & Plan (1) Overweight (BMI 25.0-29.9): Code(s): E66.3 - Overweight Category: Medical Plan: Healthy diet and regular exercise is encouraged. (2) Left leg swelling: Code(s): M79.89 - Other specified soft tissue disorders Category: Medical Plan: Patient having swelling of left ankle and dorsal aspect of the left foot. Plan to obtain stat ultrasound to rule out DVT as well as foot x-ray for further evaluation. Advised patient to continue to monitor her symptoms and if they worsen or continue to reach out to the office. Plan for further evaluation after imaging is done. (3) Pain of right heel: Code(s): M79.671 - Pain in right foot Category: Medical Plan: Patient having pain of the right heel likely related to heel spur or shoes she is wearing. Plan to obtain x-ray for further evaluation at patient request. Recommend comfortable shoes, use of insoles and activity as tolerated. Plan The recommended plan includes conducting a Doppler ultrasound for the left foot and x-rays of both feet to identify potential heel spurs or fractures. If the cause of symptoms is related to heel spurs, appropriate stretching exercises and supportive footwear will be recommended. We also considered a link between symptoms and recent increases in simvastatin dosage. Follow-up will focus on diagnostic outcomes and refining management plans for pain relief and adjustment disorder if needed. This note was constructed using voice recognition software. While every effort has been made to ensure accuracy and microsoft dynamics consultant, still areas may have been included sometimes these areas may affect the content or meeting of the given symptoms. Total time spent caring for the patient today was 20 minutes. This includes time spent before the visit reviewing the chart, time spent during the visit, and time spent after the visit and documentation. Patient was informed and verbally consented to the use of an ambient scribe for clinic note documentation during this visit. Orders: Orders XR Foot Juan 2V Today M79.671 - Pain in right foot, M79.89 - Other specified soft tissue disorders US venous duplex LE LT Today M79.89 - Other specified soft tissue disorders
== END 2024-08-07 14:31 | disposition home or self-care (01) ==
LOC: HO.HMCH 13:40
PROVIDERS: PCP Internal Medicine
DX: E66.3 Overweight (principal); M79.89 Other specified soft tissue disorders; M79.671 Pain in right foot

== ENCOUNTER → 2024-08-07 13:39 | Outpatient (BNVA) | payer BC, SELFPAY | PROVIDERS: PCP Internal Medicine | DX: Z13.89 Encounter for screening for other disorder (principal) ==

== ENCOUNTER 2024-08-07 14:41 | Outpatient (REF) | payer BC, SELFPAY ==
--- NOTE | ~2024-08-07 | XR_ITS ---
EXAMINATION: XR FOOT, bilateral CLINICAL INFORMATION: M79.89 - Other specified soft tissue disorders COMPARISON: None available. TECHNIQUE: AP, lateral, and oblique views of the bilateral feet. FINDINGS: RIGHT FOOT: No fracture, dislocation, or suspicious bone lesion. Normal bone mineralization. There is a mild pes planus deformity. There are arthritic changes in the intertarsal joints dorsally, and in the tarsometatarsal joints. The calcaneus demonstrates a small to moderate-sized plantar spur. There is no soft tissue abnormality. LEFT FOOT: No fracture, dislocation, or suspicious bone lesion. Normal bone mineralization. There is a mild pes planus deformity. There are arthritic changes in the intertarsal joints dorsally, and in the tarsometatarsal joints. The calcaneus demonstrates a small to moderate-sized plantar spur. There is a small dorsal spur. There is no soft tissue abnormality. XR/XR Foot Juan 2V IMPRESSION: 1. No acute findings of either feet. 2. There are mild pes planus deformities bilaterally. 3. There is symmetric arthritis in the dorsal intertarsal and tarsometatarsal joints. 4. There are small to moderate plantar calcaneal spurs bilaterally. 5. There is a small left-sided dorsal calcaneal spur. Electronically signed by: Harjeet Lamb MD 08/08/2024 12:52 PM EDT
--- NOTE | ~2024-08-07 | US_ITS ---
EXAMINATION: US TRIPLEX LOWER EXTREMITY, LEFT CLINICAL INFORMATION: Left leg pain. COMPARISON: None available. TECHNIQUE: Color-flow triplex imaging with spectral analysis and compression Doppler were performed on the left lower extremity. FINDINGS: Respiratory variation, normal compression and augmented flow are noted throughout the left lower extremity. The visualized common femoral vein, superficial femoral vein, profunda femoral vein, popliteal vein and midcalf peroneal and posterior tibial venous segments show no evidence of deep venous thrombosis. There is no Quintana's cyst. US/US venous duplex LE LT IMPRESSION: No evidence of deep venous thrombosis involving the left lower extremity. Electronically signed by: Harjeet Lamb MD 08/07/2024 03:40 PM EDT
== END 2024-08-07 14:42 | disposition home or self-care (01) ==
LOC: HO.US 14:41
PROVIDERS: PCP Internal Medicine
DX: M79.89 Other specified soft tissue disorders (principal); M79.671 Pain in right foot
CPT/HCPCS: 73620; 93971

== ENCOUNTER → 2024-08-07 14:46 | Outpatient (BNV) | payer BC, SELFPAY | PROVIDERS: PCP Internal Medicine; Visit Provider Radiology Diagnostic Radiology | DX: M79.605 Pain in left leg (principal) | CPT/HCPCS: 93971 ==

== ENCOUNTER 2024-08-08 12:59 | Outpatient (AMB) | payer BC, SELFPAY ==
--- NOTE | 2024-08-08 13:00 | MHC.PC.OV ---
Intake Visit Reasons: ? Allergies Allergies Penicillins [PENICILLINS] Allergy (Severe, Verified 08/08/24 13:01) SWELLING amoxicillin Allergy (Unknown, Verified 08/08/24 13:01) swelling penicillin V Allergy (Unknown, Verified 08/08/24 13:01) swelling Tobacco use date assessed: 08/07/24 Fall risk assessment: No Falls in past year Last assessed Fall Risk: 08/08/24 Dental Screening Dental Screen Date: 08/07/24 HPI ? Allergies HPI Details 3 days ago R heel sore, pain, but le foot painful- top side of the foot. PENDING SALE TO [facility] Medical History (Updated 08/08/24 @ 13:47 by Karley Yates MD) Annual physical exam COVID-19 virus infection Encounter for well woman exam with routine gynecological exam Obesity (BMI 30-39.9) Lumbar disc herniation Congenital pyloric stenosis Stress incontinence Osteoporosis Vitamin D deficiency Sciatica Anxiety and depression Peripheral vascular disease Alcohol abuse Allergic rhinitis GERD (gastroesophageal reflux disease) Hypercholesterolemia Surgical History History of total right hip arthroplasty History of left hip replacement History of bladder surgery History of tonsillectomy Hx of colonoscopy History of esophagogastroduodenoscopy (EGD) Family History Father HTN (hypertension) Diabetes Mother HTN (hypertension) CVD (cardiovascular disease) Paternal Grandfather Myocardial infarction Paternal Grandmother Myocardial infarction Breast cancer Maternal Grandfather Myocardial infarction Maternal Grandmother Myocardial infarction Social History Household Members: Family Housing: Condominium Alcohol intake: current Alcohol intake frequency: holidays/special occasions only Alcohol type: wine Comment: glass of wine 2-3 x a week Patient Tobacco Use Status: Former Tobacco user Tobacco use type: Cigarette Years Smoked: 18 years old quit e-Cigarette/Vaping Use: Never Used Second Hand Smoke Exposure: Yes service: No Current occupational status: employed Cognitive needs: No Hearing needs: No Vision needs: No Questionnaire Thrive Questionnaire Date Thrive assessed: 08/07/24 AUGIE-7 AMB Questionnaire AUGIE-7 Date AUGIE - 7 assessed: 08/07/24 Source: Developed by Drs. Rao Rizo, Lashawn Perez, Quinn Aquino and colleagues, with an educational bernarda from [employer]. Physical exam (Primary Care) Tobacco/Smoking Status: Tobacco use Status Tobacco use date assessed 08/07/24 08/08/24 13:01 Patient Tobacco Use Status Former Tobacco user 08/08/24 13:01 Tobacco use type Cigarette 08/08/24 13:01 e-Cigarette/Vaping Use Never Used 08/08/24 13:01 Thrive Assessment: Date of Thrive Assessment Date Thrive assessed 08/07/24 08/08/24 13:01 Telehealth Telehealth Location of provider rendering services: practice address Location of patient: address on file Patient Identification confirmed using: Name, : Yes Telehealth method: voice only Patient verbally consented to treatment: Yes Patient verbally consented to billing insurance company: Yes Patient informed of any privacy concerns related to visit: Yes Minutes spent on Phone/Video with Pt.: 25 Coding Level of Care Code Tele Est Pt Level 4 (45935) Diagnoses Osteoarthritis of both feet M19.071; M19.072 Hypercholesterolemia E78.00 Allergic rhinitis J30.9 Peripheral vascular disease I73.9 Assessment & Plan Assessment & Plan (1) Osteoarthritis of both feet: Code(s): M19.071 - Primary osteoarthritis, right ankle and foot; M19.072 - Primary osteoarthritis, left ankle and foot Category: Medical Plan: Continue to keep active and if having problems call. (2) Hypercholesterolemia: Code(s): E78.00 - Pure hypercholesterolemia, unspecified Category: Medical Plan: Avoid fried foods, chicken skin, eggs, butter margarine, pastries and meat. Be it pork or beef they have a lot of cholesterol LDL goal of less than 130 and triglyceride of less than 150. Increase in simvastatin recently done and will retest again. (3) Allergic rhinitis: Code(s): J30.9 - Allergic rhinitis, unspecified Category: Medical (4) Peripheral vascular disease: Code(s): I73.9 - Peripheral vascular disease, unspecified Category: Medical Plan: When sitting down elevate the legs, exercise, and support stockings Plan History of Present Illness The patient is a 63-year-old female presenting with foot swelling and pain that began at the start of this week. The initial concern was soreness in the right heel, described as heel spur-related, accompanying symptoms included new swelling and pain over the top of the left foot between the middle toe to the pinky toe. The swelling worsens with mobility and isn't resolved significantly by either compression socks or loose footwear. Temporary relief occurs when elevating the feet at home. Previously diagnosed arthritic changes in both feet were confirmed by imaging, highlighting calcaneal spurs as related structures. Her treatment course for hypercholesterolemia continues alongside these concerns, adjusting her simvastatin regimen to achieve target lipid levels. Review of Systems - Musculoskeletal: Reports foot swelling and pain; denies ankle swelling. - Dermatological: Reports redness in swollen area. - Other systems not discussed were not reviewed in this visit. Plan Management focuses on addressing foot swelling and pain due to arthritis and calcaneal spurs. Suggested measures include elevation and wearing supportive footwear to reduce swelling. Compression stockings may offer benefit, although their effect may not always be noticeable to the patient. Management of hypercholesterolemia continues with recent increases in simvastatin dosage, targeting specific lipid levels. Exercise and activity modifications to support overall health and cholesterol control are advised. Patient was informed and verbally consented to the use of an ambient scribe for clinic note documentation during this visit. Discussion Notes During our discussion, I explained the implications of osteoarthritis and calcaneal spurs and their contribution to her foot pain and swelling. We discussed the non-surgical management of symptoms, emphasizing elevation and cautious use of compression wear. It was advised that maintaining activity within her comfort level is beneficial. We reviewed her current hypercholesterolemia treatment plan, noting the recent adjustment in simvastatin dosage. Our conversation also underscored the importance of a healthier lifestyle through diet and regular exercise. We plan to reassess at the upcoming scheduled follow-up. Patient Instructions - Elevate your feet when sitting or lying down. - Wear supportive footwear that does not constrict. - Continue using compression stockings if comfortable. - Maintain your current medication regimen for cholesterol. - Stay physically active within comfort limits. - Monitor any changes in swelling or redness. - Follow up as scheduled in a few weeks.
== END 2024-08-08 17:18 | disposition home or self-care (01) ==
LOC: HO.HMCH 12:59
PROVIDERS: PCP Internal Medicine; Visit Provider Internal Medicine
DX: M19.071 Primary osteoarthritis, right ankle and foot (principal); M19.072 Primary osteoarthritis, left ankle and foot; E78.00 Pure hypercholesterolemia, unspecified; J30.9 Allergic rhinitis, unspecified; I73.9 Peripheral vascular disease, unspecified

== ENCOUNTER → 2024-08-08 12:59 | Outpatient (BNVA) | payer BC, SELFPAY | PROVIDERS: PCP Internal Medicine; Visit Provider Internal Medicine ==

== ENCOUNTER 2024-08-22 15:49 | Outpatient (AMB) | payer BC, SELFPAY ==
[2024-08-22 16:15] VITALS: BP 120/70; PULSE 64; O2SAT 97; BMI 28.7
--- NOTE | 2024-08-22 16:15 | MHC.PC.OV ---
Vital Signs 08/22/24 16:15 Height 5 ft 3 in Weight 162 lb BMI 28.7 BP 120/70 Blood Pressure Location Lt brachial Position Sitting Pulse 64 Pulse Source Pulse Oximeter Temp Source Temporal Artery Scan Pulse Oximetry (%) 97 Oxygen Delivery Method Room Air Intake Visit Reasons: Annual Exam [employer] Required: No Accompanied by: Self / Same As Patient Allergies Penicillins [PENICILLINS] Allergy (Severe, Verified 08/22/24 16:26) SWELLING amoxicillin Allergy (Unknown, Verified 08/22/24 16:26) swelling penicillin V Allergy (Unknown, Verified 08/22/24 16:26) swelling Medication List - Last Reconciled 08/22/24 by Karley Yates MD albuterol sulfate 90 mcg/actuation 2 puffs inhalation Q4-6H PRN 30 days calcium carbonate (Calcium 600) 600 mg PO DAILY clotrimazole 1% 1 appl topical BID 4 weeks ferrous sulfate 27 mg PO DAILY ipratropium bromide 1 intranasal BEDTIME ketoconazole 2% 1 appl topical 2XW loratadine (Claritin) 10 mg PO DAILY multivitamin 1 tab PO DAILY simvastatin 40 mg PO BEDTIME triamcinolone acetonide 0.5% 1 appl topical BID Tobacco use date assessed: 08/07/24 Fall risk assessment: No Falls in past year Last assessed Fall Risk: 08/22/24 Dental Screening Dental Screen Date: 08/07/24 [facility] Medical History (Updated 08/22/24 @ 16:54 by Karley Yates MD) Annual physical exam COVID-19 virus infection Encounter for well woman exam with routine gynecological exam Obesity (BMI 30-39.9) Lumbar disc herniation Congenital pyloric stenosis Stress incontinence Osteoporosis Vitamin D deficiency Sciatica Anxiety and depression Peripheral vascular disease Alcohol abuse Allergic rhinitis GERD (gastroesophageal reflux disease) Hypercholesterolemia Surgical History History of total right hip arthroplasty History of left hip replacement History of bladder surgery History of tonsillectomy Hx of colonoscopy History of esophagogastroduodenoscopy (EGD) Family History Father HTN (hypertension) Diabetes Mother HTN (hypertension) CVD (cardiovascular disease) Paternal Grandfather Myocardial infarction Paternal Grandmother Myocardial infarction Breast cancer Maternal Grandfather Myocardial infarction Maternal Grandmother Myocardial infarction Social History Household Members: Family Housing: Condominium Alcohol intake: current Alcohol intake frequency: holidays/special occasions only Alcohol type: wine Comment: glass of wine 2-3 x a week Patient Tobacco Use Status: Former Tobacco user Tobacco use type: Cigarette Years Smoked: 18 years old quit e-Cigarette/Vaping Use: Never Used Second Hand Smoke Exposure: Yes service: No Current occupational status: employed Cognitive needs: No Hearing needs: No Vision needs: No Questionnaire Thrive Questionnaire Date Thrive assessed: 08/07/24 I am a: Parent/Caregiver What is your living situation today?: I have a steady place to live Within the past 12 months, did the food you bought not last and you didn't have the money to get more?: Never true Within the past 12 months, did you worry whether your food would run out before you got money to buy more?: Never true Do you have trouble paying for medicines?: No Do you have trouble getting transportation to medical appointments?: No Do you have trouble paying your heating and electricity bill?: No Do you have trouble taking care of your child, family member or friend?: No Do you have trouble with day-to-day activities such as bathing, preparing meals, shopping, managing finances, etc.?: No Are you currently unemployed and looking for a job?: No Are you interested in more education?: No Please select the resources that you would like help with: None Currently or been in a relationship where the following occur: No concerns reported THRIVE Score: 0 AUGIE-7 AMB Questionnaire AUGIE-7 Date AUGIE - 7 assessed: 08/07/24 Source: Developed by Drs. Rao Rizo, Lashawn Perez, Quinn Aquino and colleagues, with an educational bernarda from [employer]. Review of Systems Const Denies poor appetite and Denies weakness Eyes Denies no additional complaints ENT Reports Normal hearing present, Denies dizziness, Denies nasal congestion, Denies tinnitus and Denies sore throat Card Denies chest pain, Denies syncope, Denies rapid heart rate and Denies dyspnea Resp Denies cough and Denies dyspnea GI Denies change in stool character, Reports constipation, Denies diarrhea, Denies nausea and Denies vomiting Denies urinary frequency, Denies difficulty voiding and Denies dysuria Neuro Reports Normal hearing present, Denies confusion, Denies dizziness, Denies syncope and Denies weakness Psych Denies confusion Physical exam (Primary Care) Vital Signs: Last Vital Signs Pulse 64 08/22/24 16:15 BP 120/70 08/22/24 16:15 Pulse Ox 97 08/22/24 16:15 Oxygen Delivery Method Room Air 08/22/24 16:15 BMI result Body Mass Index 28.7 Tobacco/Smoking Status: Tobacco use Status Tobacco use date assessed 08/07/24 08/22/24 16:17 Patient Tobacco Use Status Former Tobacco user 08/22/24 16:17 Tobacco use type Cigarette 08/22/24 16:17 e-Cigarette/Vaping Use Never Used 08/22/24 16:17 Thrive Assessment: Date of Thrive Assessment Date Thrive assessed 08/07/24 08/22/24 16:17 Currently or been in a relationship where the following occur: No concerns reported Const General: alert and awake; No confusion Orientation/consciousness: No confusion HENMT Head: Yes normocephalic Ears: external ears normal and TM's normal bilaterally Face and sinus: Yes normal facial exam Mouth: moist mucous membranes Throat: Yes tonsils normal Eyes Conjunctivae: conjunctivae normal Pupils: Equal, round and reactive pupils present and Pupil accommodation reflex normal Direct Ophthalmoscopy: normal light reflex Neck Neck: No lymphadenopathy Thyroid: Thyroid normal Chest Chest palpation & inspection: normal inspection of the chest Resp Effort & Inspection: normal respiratory effort and no audible wheezes Auscultation: clear to auscultation bilaterally, no crackles, no wheezes and lung sounds not diminished Cardio Rate: regular rate Rhythm: regular rhythm Peripheral pulses: radial pulses present and dorsalis pedis present GI Palpation (GI): no masses Auscultation: normal bowel sounds and normoactive bowel sounds Rectal Exam - Female: deferred Skin General skin exam: no rashes or lesions noted Rashes: no rashes Neuro General: deep tendon reflexes 2+ bilaterally and No confusion Cranial nerves: Yes Equal, round and reactive pupils present, Yes Midline tongue present, Yes Normal hearing present and Yes Ability to bilaterally elevate shoulders present Cognition (Neuro): normal cognition Gait exam (Neuro): Normal gait present Motor exam (neuro): 5/5 motor strength present throughout Deep tendon reflexes (DTR's): Right brachioradialis reflex intensity grade: 2+, Left brachioradialis reflex intensity grade: 2+, Right patellar reflex intensity grade: 2+ and Left patellar reflex intensity grade: 2+ Extrem General: No edema Coding Level of Care Code Est Pt Prev Care >65y(97733) Diagnoses Annual physical exam Z00.00 Overweight (BMI 25.0-29.9) E66.3 GERD (gastroesophageal reflux disease) K21.9 Hypercholesterolemia E78.00 Osteoporosis M81.0 Assessment & Plan Assessment & Plan (1) Annual physical exam: Code(s): Z00.00 - Encounter for general adult medical examination without abnormal findings Category: Medical Plan: Patient is advised to eat healthy, keep well hydrated, keep active and have adequate sleep. (2) Overweight (BMI 25.0-29.9): Code(s): E66.3 - Overweight Category: Medical Plan: Diet and exercise (3) GERD (gastroesophageal reflux disease): Code(s): K21.9 - Gastro-esophageal reflux disease without esophagitis Category: Medical Plan: Avoid the foods that causes that usually spicy foods, tomato products, juices, coffee, soda and foods that your sensitive to. After eating do not lie down, allow 3-4 hours before in lie down. And keep the head of bed above 30 degrees to avoid the acid from going up. (4) Hypercholesterolemia: Code(s): E78.00 - Pure hypercholesterolemia, unspecified Category: Medical Plan: Avoid fried foods, chicken skin, eggs, butter margarine, pastries and meat. Be it pork or beef they have a lot of cholesterol on simvastatin LDL goal of less than 130 and triglyceride of less than 150 (5) Osteoporosis: Comment: March Code(s): M81.0 - Age-related osteoporosis without current pathological fracture Category: Medical Plan: Discussion about calcium and vitamin-D and other modalities to help with bone density. Plan History of Present Illness The patient is a 63-year-old female presenting for a routine physical examination. She has a past medical history of lymphocytic colitis, hypercholesterolemia, erosive esophagitis, GERD, osteoporosis, and peripheral vascular disease. Her last blood work in July 2022 indicated elevated cholesterol at 179 mg/dl, with other parameters within normal ranges. She experiences increased dry eyes due to allergies and post-LASIK surgery, using eye drops for relief. She reports some weight gain and reduced physical activity because of foot pain but denies new diagnoses or surgeries since the last visit. Her social context includes an upcoming move to [place] and recent family health stresses involving her mother. She uses albuterol as needed and tries to manage her symptoms without frequent medication. She is conscious of her diet and uses multivitamins, iron, and calcium supplements. She experiences some gastrointestinal discomfort but reports it as stable, with occasional soft stools. Health Maintenance - Routine mammogram and bone density tests done in October 2023. - Colonoscopy last performed in 2016, with no polyps detected. - Cholesterol management with simvastatin and focus on diet and exercise modifications. - Pneumonia, tetanus, and shingles vaccinations are up-to-date. - Lifestyle discussions about exercise limitations and adaptations due to foot pain. Social History - Plans to relocate to [place] later this year. - Occasional consumption of white wine, approximately two to three times a week. - No tobacco use. - Limited exercise due to foot pain, affecting normal walking routines. - Concerns related to family stress and relocation. Review of Systems - General: Denies fever, dizziness, nausea, vomiting, altered bowel movements. - Eyes: Reports increased dryness, managed with eye drops. - Respiratory: Reports congestion and cough with clear phlegm. - Cardiovascular: Denies chest pain or shortness of breath. - Gastrointestinal: Reports soft, greenish stools. - Musculoskeletal: Reports foot pain limiting physical activity. - Neurological: Denies dizziness, syncope, or headaches. Physical Exam General: Cooperative, healthy appearing, comfortable, no acute distress and well developed Orientation: Patient oriented x3 Limitations: No limitations Head: Normal to inspection Ears: Hearing grossly normal bilaterally Nose: Some congestion, but it's clear Face and sinus: Normal facial exam Eyes: Very dry eyes, using drops for relief Neck: Normal visual inspection and Yes full ROM Respiratory: Normal respiratory effort and able to speak in complete sentences. Clear to auscultation bilaterally, coughing up a lot of clear phlegm during the past week Cardiovascular: Regular rate and rhythm. Normal S1 and S2 GI: Normal to inspection. Soft to palpation and nontender, sometimes very soft stool, dark greenish-mckenzie Skin: No rashes or lesions noted Neuro: Patient oriented x3 Extremities: Normal to inspection, ultrasound of the lower extremities negative, some tenderness in the foot where the thumb was placed Results - Labs: Blood counts and electrolytes within normal limits. Cholesterol elevated at 179 mg/dL. - Tests: Last mammogram and bone density tests normal in October 2023. Colonoscopy in 2016 without polyps. Plan I will continue simvastatin therapy for hypercholesterolemia, aiming for improved lipid profile, coupled with appropriate dietary adjustments. Symptom management for dry eyes includes continued use of eye drops, and careful consideration is given to the use of ipratropium spray. Physical activity recommendations accommodate her foot's condition with a gradual increase as comfort allows. Post-move, arrangements for continuity of care are advised. Lastly, ongoing family support for her mother's health challenges is acknowledged. Patient was informed and verbally consented to the use of an ambient scribe for clinic note documentation during this visit. Discussion Notes I explained the current management strategy for hypercholesterolemia, emphasizing the role of simvastatin and dietary changes in reducing cardiovascular risks. The potential dryness caused by nasal sprays was highlighted, advocating for measured use. I reviewed the outcomes of recent diagnostic tests and committed to integrating future screening needs. Discussion focused on lifestyle modifications necessary for foot health and increasing activity levels, recognizing her relocation plans and ensuring she remains connected with medical services post-move. Patient Instructions - Continue taking prescribed simvastatin and monitor cholesterol levels closely. - Use eye drops regularly for dry eyes and limit nasal spray use. - Incorporate gradual physical activity as tolerated for weight management. - Stay proactive in family health discussions and logistical planning for relocation. - Stay updated on preventative care such as vaccines and regular screenings. - Ensure sufficient hydration and a balanced diet to manage cholesterol and overall health. Medications: New psyllium husk (Fiber-Caps (psyllium husk)) 1.04 grams (2 x 0.52 gram) PO DAILY 60 caps 3RF
== END 2024-08-22 17:10 | disposition home or self-care (01) ==
LOC: HO.HMCH 15:50
PROVIDERS: PCP Internal Medicine; Visit Provider Internal Medicine
DX: Z00.00 Encounter for general adult medical examination without abnormal findings (principal); E66.3 Overweight; K21.9 Gastro-esophageal reflux disease without esophagitis; E78.00 Pure hypercholesterolemia, unspecified; M81.0 Age-related osteoporosis without current pathological fracture

== ENCOUNTER → 2024-08-22 15:49 | Outpatient (BNVA) | payer BC, SELFPAY | PROVIDERS: PCP Internal Medicine; Visit Provider Internal Medicine | DX: Z13.89 Encounter for screening for other disorder (principal) ==